=== PATIENT | female | born 1940 | race Caucasian/White ===

== ENCOUNTER → 2016-03-27 | Outpatient (CLI) | payer OTHER ==
[~2016-03-27] MED LIST: ACET-1256 PO; ASPEC81 PO; ASPI1TAB83 PO; ATV2 PO; CYCL0.052 OPB; LEVO100T7 PO; MECL1TAB42 PO; OMEP20CA9 PO; SYN100 PO
--- NOTE | 2016-03-27 08:02 | DIAGNOSTIC IMAGING REPORT ---
ULTRASOUND ABDOMEN COMPLETE CLINICAL HISTORY: Generalized abdominal pain. COMPARISON STUDY: Abdominal CT dated 02/21/2014. TECHNIQUE: Real-time, grayscale, and color flow sonography of the abdomen was performed. Images are reviewed in the transverse and longitudinal planes. The Examination is degraded by large body habitus. FINDINGS: Liver: The liver is normal in size and echotexture. The left lobe of the liver appears diminutive. There is no intrahepatic biliary ductal dilatation. The main portal vein is patent. Gallbladder: The gallbladder is surgically absent. Imaged portions of the common bile duct measures up to 0.3 cm in diameter. Pancreas: Visualized portions of the pancreatic head appear atrophic. The majority of the pancreas is not well visualized. Spleen: The spleen is normal in size and echotexture, measuring 8.4 cm in length. Kidneys: The kidneys demonstrate cortical atrophy. There is no hydronephrosis. The right kidney measures 11.2 cm in length and the left kidney measures 11.4 cm in length. No shadowing calculi are identified. Abdominal vasculature: Visualized portions of the abdominal aorta are normal in appearance. The IVC appears patent. Ascites: None. IMPRESSION: No acute sonographic abnormality is identified noting status post cholecystectomy. Electronically signed by: Guille Irene M.D. 03/27/2016 8:00 AM Dictated Date/Time: 03/27/2016 7:58 AM
[2016-03-27 11:16] LABS: BASO % 0.5 %; BASO ABS # 0.03 K/uL (0-0.2); COMPLETE YES; EOS % 2.6 %; HEMATOCRIT 42.9 % (37-47); IG% 0.3 %; LYMPH % 26.3 %; LYMPH ABS # 1.75 K/uL (1.2-3.4); MEAN CELL VOLUME 94.9 fL (80-100); MEAN CORPUSCULAR HEMOGLOBIN 32.1 pg (25-34); MEAN CORPUSCULAR HGB CONC 33.8 g/dl (32-36); MEAN PLATELET VOLUME 10.3 fL (7.4-10.4); MONO % 9.9 %; NEUT % 60.4 %; PLATELET COUNT 350 K/uL (130-400); RED BLOOD COUNT 4.52 M/uL (4.2-5.4); WHITE BLOOD COUNT 6.66 K/uL (4.8-10.8)
[2016-03-27 11:30] LABS: ALKALINE PHOSPHATASE 78 U/L (45-117); ALT/SGPT 24 U/L (12-78); AST/SGOT 17 U/L (15-37); BLOOD UREA NITROGEN 13 mg/dl (7-18); BUN/CREATININE RATIO 18.4 (10-20); CALCIUM 8.8 mg/dl (8.5-10.1); CARBON DIOXIDE 29 mmol/L (21-32); CHLORIDE 104 mmol/L (98-107); CHOLESTEROL 216 mg/dl (0-200); CHOLESTEROL/HDL RATIO 2.6; CREATININE 0.73 mg/dl (0.60-1.20); GLUCOSE 108 mg/dl (70-99); HDL CHOLESTEROL 82 mg/dl; LDL CHOLESTEROL CALCULATED 106 mg/dl; POTASSIUM 4.1 mmol/L (3.5-5.1); SODIUM 140 mmol/L (136-145); TRIGLYCERIDES 140 mg/dl (0-150); VERY LOW DENSITY LIPOPROT CALC 28 mg/dl
== END | disposition home or self-care (01) ==
LOC: C.ULTRBC 07:09
PROVIDERS: ATTEND Family Medicine
DX: R10.11 Right upper quadrant pain (principal); R53.83 Other fatigue; M54.5 Low back pain

== ENCOUNTER → 2016-09-02 | Outpatient (CLI) | payer OTHER ==
--- NOTE | 2016-09-02 15:38 | MAMMOGRAPHY REPORT ---
UNILATERAL LEFT DIGITAL SCREENING MAMMOGRAM TOMOSYNTHESIS WITH CAD: 09/02/2016 TECHNIQUE: Breast tomosynthesis in addition to standard 2D mammography was performed. Current study was also evaluated with a Computer Aided Detection (CAD) system. Left CC and MLO 2-D and tomosynthes is images were obtained. COMPARISON: Comparison is made to exams dated: 08/29/2015 mammogram, 07/17/2014 mammogram, 04/25/2013 angelito mogram, 12/01/2011 mammogram, and 04/21/2011 ultrasound - [facility]. BREAST COMPOSITION: The tissue of the left breast is almost entirely fatty. FINDINGS: Status post right mastectomy. There are no suspicious masses, calcifications, or areas of architectural distortion noted in the left breast. There has been no significant interval change co mpared to prior exams. A biopsy marker clip is again noted in the left upper outer quadrant. Scatte red benign-appearing calcifications are stable. Benign-appearing circumscribed left breast masses in the left breast are stable compared to prior exams. IMPRESSION: ACR BI-RADS CATEGORY 2: BENIGN There is no mammographic evidence of malignancy. A 1 year screening mammogram is recommended. The pa tient will receive written notification of the results. Approximately 10% of breast cancers are not detected with mammography. A negative mammographic report should not delay biopsy if a clinically suggestive mass is present. Annie Rg M.D. ah/:09/02/2016 12:16:12 Anthropology Lecturer: Maricarmen PRADO)([place]), [facility] letter sent: Normal 1/2 BI-RADS Code: ACR BI-RADS Category 2: Benign
== END | disposition home or self-care (01) ==
LOC: C.MAMM 10:58
PROVIDERS: ATTEND Family Medicine
DX: Z12.31 Encounter for screening mammogram for malignant neoplasm of breast (principal)

== ENCOUNTER 2016-09-05 12:12 | Emergency (ER) | payer OTHER ==
[~2016-09-05] VITALS: Ht 152.4 cm; Wt 66.0 kg
[~2016-09-05 12:12] MED LIST changes: -ASPI1TAB83 PO; -CYCL0.052 OPB; -LEVO100T7 PO; -MECL1TAB42 PO
[2016-09-05 12:32] VITALS: TEMP 36.6; Ht 152.4 cm; Wt 66.0 kg
[2016-09-05] MEDS ORDERED: ASPI1TAB83 PO (12:48)
[2016-09-05] MEDS ORDERED: CYCL0.052 OPB (12:48)
[2016-09-05] MEDS ORDERED: LEVO100T7 PO (12:48)
[2016-09-05] MEDS ORDERED: SODIUM CHLORIDE 0.9% 1000ML 1,000 ML IV STA (12:51)
[2016-09-05] MEDS ORDERED: ONDANSETRON 8 MG/54 ML D5W IV STA (12:59)
[2016-09-05] MEDS ORDERED: MECLIZINE HCL 25 MG TAB PO STA (12:59)
[2016-09-05] MEDS ORDERED: LORAZEPAM 2 MG/ML 1 ML VIAL IV STA (12:59)
[2016-09-05 13:09] LABS: BASO % 0.2 %; BASO ABS # 0.02 K/uL (0-0.2); COMPLETE YES; EOS % 0.1 %; HEMATOCRIT 45.4 % (37-47); IG% 0.2 %; LYMPH % 9.4 %; LYMPH ABS # 1.17 K/uL (1.2-3.4); MEAN CELL VOLUME 93.2 fL (80-100); MEAN CORPUSCULAR HEMOGLOBIN 32.2 pg (25-34); MEAN CORPUSCULAR HGB CONC 34.6 g/dl (32-36); MEAN PLATELET VOLUME 9.5 fL (7.4-10.4); NEUT % 87.1 %; PLATELET COUNT 423 K/uL (130-400); RED BLOOD COUNT 4.87 M/uL (4.2-5.4)
--- NOTE | 2016-09-05 13:18 | DIAGNOSTIC IMAGING REPORT ---
CHEST ONE VIEW PORTABLE CLINICAL HISTORY: EVALUATE ALTERED MENTAL STATUS/WEAKNESS mental status change COMPARISON STUDY: 11/14/2015 FINDINGS: Chronic elevation right hemidiaphragm. Lungs are clear. Postoperative changes right axilla and thoracolumbar spine unchanged IMPRESSION: No acute process. The above report was generated using voice recognition software. It may contain grammatical, syntax or spelling errors. Electronically signed by: Uche Bonner M.D. 09/05/2016 1:16 PM Dictated Date/Time: 09/05/2016 1:16 PM
[2016-09-05 13:31] LABS: ALT/SGPT 20 U/L (12-78); BLOOD UREA NITROGEN 8 mg/dl (7-18); BUN/CREATININE RATIO 11.3 (10-20); CALCIUM 9.7 mg/dl (8.5-10.1); CARBON DIOXIDE 26 mmol/L (21-32); CHLORIDE 101 mmol/L (98-107); CREATININE 0.67 mg/dl (0.60-1.20); GLUCOSE 152 mg/dl (70-99); MAGNESIUM 1.7 mg/dl (1.8-2.4); POTASSIUM 3.5 mmol/L (3.5-5.1); SODIUM 136 mmol/L (136-145)
--- NOTE | 2016-09-05 13:37 | DIAGNOSTIC IMAGING REPORT ---
HEAD WITHOUT CONTRAST (CT) CT DOSE: 687.98 mGy.cm HISTORY: EVALUATE ALTERED MENTAL STATUS/WEAKNESS TECHNIQUE: Multiaxial CT images of the head were performed without the use of intravenous contrast. Comparison: None. Findings: The paranasal sinuses and mastoid air cells are clear. The calvarium and skull base are intact. The ventricles and sulci are within normal limits. There is no mass, hematoma, midline shift, or acute infarct. Mild findings of chronic small vessel change of aging Impression: No acute intracranial abnormality. Age-related change The above report was generated using voice recognition software. It may contain grammatical, syntax or spelling errors. Electronically signed by: Uche Bonner M.D. 09/05/2016 1:35 PM Dictated Date/Time: 09/05/2016 1:34 PM
[2016-09-05 13:39] LABS: ALKALINE PHOSPHATASE 65 U/L (45-117); AST/SGOT 17 U/L (15-37); CKMB/CK RATIO 1.3 (0-3.0); THYROID STIMULATING HORMONE 0.562 uIu/ml (0.300-4.500)
[2016-09-05 14:27] LABS: PARTIAL THROMBOPLASTIN RATIO 1.1; PROTHROMBIN TIME (PATIENT) 10.7 SECONDS (9.0-12.0)
[2016-09-05 14:42] LABS: URINE APPEARANCE CLEAR (CLEAR); URINE BILIRUBIN NEG (NEG); URINE COLOR YELLOW; URINE NITRITE NEG (NEG); URINE PH 7.5 (4.5-7.5); URINE SPECIFIC GRAVITY 1.014 (1.000-1.030); UROBILINOGEN NEG (NEG); ZZUR CULT IF INDIC CLEAN CATCH NO
[2016-09-05 14:47] LABS: MANUAL MICROSCOPIC REQUIRED? NO; REVIEW REQ? NO
[2016-09-05] MEDS ORDERED: MECL1TAB42 PO (15:54)
--- NOTE | 2016-09-05 15:55 | EMERGENCY ROOM VISIT NOTE ---
History Report prepared by Gina: Rebekah Salgado Under the Supervision of: Dr. Mason Biswas D.O. First contact with patient: 12:47 Chief Complaint: DIZZY Stated Complaint: DIZZINESS,VOMITING Nursing Triage Summary: PT HERE WITH DIZZINESS AND VOMITING SINCE THIS AM. HX OF VERTIGO ONCE BEFORE. SLIGHT HEADACHE EARLIER. FEELS LIKE ROOM IS SPINNING History of Present Illness The patient is a 75 year old female who presents to the Emergency Room with complaints of intermittent dizziness starting this morning. The patient had an onset of her symptoms when she woke up this morning. She has been having intermittent dizziness all morning. She describes it as room spinning dizziness. She has worsening symptoms with head movement. She was unable to ambulate as normal. She had symptom relief with rest. The patient also complains of nausea and vomiting. She had 8 vomiting episodes this morning. She currently denies any pain. She denies any history of similar symptoms. She has a history of vertigo but reports her current symptoms are much more severe. She denies headache, diarrhea, or any other complaints. Source of History: patient Onset: this morning Position: other (global) Symptom Intensity: No pain Quality: other (dizziness) Timing: intermittent Modifying Factors (Worsening): movement (of head) Modifying Factors (Relieving): rest Associated Symptoms: + nausea, + vomiting, No headache, No diarrhea Review of Systems See HPI for pertinent positives & negatives. A total of 10 systems reviewed and were otherwise negative. Past Medical & Surgical Medical Problems: (1) Back surgery (2) Benign hypertension (3) Breast CA (4) Carcinoma of breast (5) Cellulitis (6) Cellulitis of right upper extremity (7) Cholecystectomy (8) Diverticulitis (9) Hypertension (10) Lymphangitis (11) Mastectomy (12) Urinary tract infection Surgical Problems: (1) H/O spinal fusion (2) Hx of cholecystectomy Family History Cancer Heart disease Hypertension Lung disease Social History Smoking Status: Never Smoker Marital Status: Occupation Status: retired Current/Historical Medications Scheduled Aspirin (Aspirin), 81 MG PO DAILY Cyclosporine (Ophth) (Restasis), 1 DROP OPB BID Levothyroxine Sodium (Levothyroxine Sodium), 100 MCG PO DAILY Omeprazole (Prilosec), 20 MG PO BID Scheduled PRN Lorazepam (Lorazepam), 2 MG PO TID PRN for Anxiety Allergies Coded Allergies: Amoxicillin (Verified Allergy, Intermediate, RASH, 12/28/15) RASH AND GI UPSET Clavulanic Acid (Verified Allergy, Intermediate, RASH, 12/28/15) RASH AND GI UPSET Cephalexin (Verified Allergy, Mild, HIVES, 12/28/15) Ciprofloxacin (Verified Allergy, Mild, HIVES, 12/28/15) Sulfa Drugs (Verified Allergy, Mild, 12/28/15) Sulfa Antibiotics (Unverified Allergy, Unknown, HIVES, 12/28/15) Doxycycline (Verified Adverse Reaction, Unknown, GI distress, 12/28/15) Doxycycline Monohydrate Physical Exam Vital Signs Date Time Temp Pulse Resp B/P (MAP) Pulse Ox O2 Delivery O2 Flow Rate FiO2 09/05/16 14:18 99 09/05/16 13:57 95 18 142/88 96 Room Air 09/05/16 12:51 99 15 164/100 97 09/05/16 12:32 36.6 100 16 149/97 94 Room Air Physical Exam VITAL SIGNS: were reviewed as above. GENERAL:Non-toxic in appearance. SKIN: Warm dry and pink. HEAD: Normocephalic and atraumatic. OROPHARYNX: Is clear and moist NECK: Supple without lymphadenopathy or meningismus. LUNGS: clear. HEART: Regular rate and rhythm. ABDOMEN: Soft and nontender. EXTREMITIES: Warm and well perfused. NEUROLOGICALLY: Awake alert and oriented without focal deficit. Cranial nerves 2 -12 are intact. There is no pronator drift. Cerebellar testing is within normal limits. There is no nystagmus. There is no facial droop. Speech is clear. Vision is grossly normal. MUSCULOSKELETAL: Good muscle tone. No evidence of trauma. Medical Decision & Procedures ER Provider Diagnostic Interpretation: X ray results and stated below per my interpretation and radiology interpretation. CHEST ONE VIEW PORTABLE CLINICAL HISTORY: EVALUATE ALTERED MENTAL STATUS/WEAKNESS mental status change COMPARISON STUDY: 11/14/2015 FINDINGS: Chronic elevation right hemidiaphragm. Lungs are clear. Postoperative changes right axilla and thoracolumbar spine unchanged IMPRESSION: No acute process. The above report was generated using voice recognition software. It may contain grammatical, syntax or spelling errors. Electronically signed by: Uche Bonner M.D. 09/05/2016 1:16 PM Dictated Date/Time: 09/05/2016 1:[address] results as stated below per my review and radiologist interpretation: HEAD WITHOUT CONTRAST (CT) CT DOSE: 687.98 mGy.cm HISTORY: EVALUATE ALTERED MENTAL STATUS/WEAKNESS TECHNIQUE: Multiaxial CT images of the head were performed without the use of intravenous contrast. Comparison: None. Findings: The paranasal sinuses and mastoid air cells are clear. The calvarium and skull base are intact. The ventricles and sulci are within normal limits. There is no mass, hematoma, midline shift, or acute infarct. Mild findings of chronic small vessel change of aging Impression: No acute intracranial abnormality. Age-related change The above report was generated using voice recognition software. It may contain grammatical, syntax or spelling errors. Electronically signed by: Uche Bonner M.D. 09/05/2016 1:35 PM Dictated Date/Time: 09/05/2016 1:34 PM Laboratory Results 09/05/16 12:45 Red Blood Count 4.87, Mean Corpuscular Volume 93.2, Mean Corpuscular Hemoglobin 32.2, Mean Corpuscular Hemoglobin Concent 34.6, Mean Platelet Volume 9.5, Neutrophils (%) (Auto) 87.1, Lymphocytes (%) (Auto) 9.4, Monocytes (%) (Auto) 3.0, Eosinophils (%) (Auto) 0.1, Basophils (%) (Auto) 0.2, Neutrophils # (Auto) 10.81, Lymphocytes # (Auto) 1.17, Monocytes # (Auto) 0.37, Eosinophils # (Auto) 0.01, Basophils # (Auto) 0.02 09/05/16 12:45 Test 09/05/16 12:45 09/05/16 13:40 09/05/16 14:00 White Blood Count 12.40 K/uL (4.8-10.8) Red Blood Count 4.87 M/uL (4.2-5.4) Hemoglobin 15.7 g/dL (12.0-16.0) Hematocrit 45.4 % (37-47) Mean Corpuscular Volume 93.2 fL (80-100) Mean Corpuscular Hemoglobin 32.2 pg (25-34) Mean Corpuscular Hemoglobin Concent 34.6 g/dl (32-36) Platelet Count 423 K/uL (130-400) Mean Platelet Volume 9.5 fL (7.4-10.4) Neutrophils (%) (Auto) 87.1 % Lymphocytes (%) (Auto) 9.4 % Monocytes (%) (Auto) 3.0 % Eosinophils (%) (Auto) 0.1 % Basophils (%) (Auto) 0.2 % Neutrophils # (Auto) 10.81 K/uL (1.4-6.5) Lymphocytes # (Auto) 1.17 K/uL (1.2-3.4) Monocytes # (Auto) 0.37 K/uL (0.11-0.59) Eosinophils # (Auto) 0.01 K/uL (0-0.5) Basophils # (Auto) 0.02 K/uL (0-0.2) RDW Standard Deviation 45.3 fL (36.4-46.3) RDW Coefficient of Variation 13.2 % (11.5-14.5) Immature Granulocyte % (Auto) 0.2 % Immature Granulocyte # (Auto) 0.02 K/uL (0.00-0.02) Anion Gap 9.0 mmol/L (3-11) Est Creatinine Clear Calc Drug Dose 61.5 ml/min Estimated GFR () 99.7 Estimated GFR (Non- 86.0 BUN/Creatinine Ratio 11.3 (10-20) Calcium Level 9.7 mg/dl (8.5-10.1) Magnesium Level 1.7 mg/dl (1.8-2.4) Total Bilirubin 0.9 mg/dl (0.2-1) Direct Bilirubin 0.2 mg/dl (0-0.2) Aspartate Amino Transf (AST/SGOT) 17 U/L (15-37) Alanine Aminotransferase (ALT/SGPT) 20 U/L (12-78) Alkaline Phosphatase 65 U/L (45-117) Total Creatine Kinase 64 U/L (26-192) Creatine Kinase MB 0.8 ng/ml (0.5-3.6) Creatine Kinase MB Ratio 1.3 (0-3.0) Troponin I < 0.015 ng/ml (0-0.045) Total Protein 7.9 gm/dl (6.4-8.2) Albumin 4.3 gm/dl (3.4-5.0) Lipase 83 U/L (73-393) Thyroid Stimulating Hormone (TSH) 0.562 uIu/ml (0.300-4.500) Prothrombin Time 10.7 SECONDS (9.0-12.0) Prothromb Time International Ratio 1.0 (0.9-1.1) Activated Partial Thromboplast Time 27.4 SECONDS (21.0-31.0) Partial Thromboplastin Ratio 1.1 Urine Color YELLOW Urine Appearance CLEAR (CLEAR) Urine pH 7.5 (4.5-7.5) Urine Specific [place] 1.014 (1.000-1.030) Urine Protein NEG (NEG) Urine Glucose (UA) NEG (NEG) Urine Ketones 1+ (NEG) Urine Occult Blood NEG (NEG) Urine Nitrite NEG (NEG) Urine Bilirubin NEG (NEG) Urine Urobilinogen NEG (NEG) Urine Leukocyte Esterase NEG (NEG) Urine WBC (Auto) 1-5 /hpf (0-5) Urine RBC (Auto) 0-4 /hpf (0-4) Urine Hyaline Casts (Auto) 0 /lpf (0-5) Urine Epithelial Cells (Auto) 10-20 /lpf (0-5) Urine Bacteria (Auto) NEG (NEG) Laboratory results as stated above per my review. Medications Administered Medications (Trade) Dose Ordered Sig/Briana Route Start Time Stop Time Status Last Admin Dose Admin Sodium Chloride 1,000 ml @ 999 mls/hr Q1H1M STAT IV 09/05/16 12:51 09/05/16 13:51 DC 09/05/16 12:51 999 MLS/HR Ondansetron HCl (Zofran 8mg Iv) 8 mg NOW STAT IV 09/05/16 12:59 09/05/16 13:00 DC 09/05/16 13:12 8 MG Meclizine HCl (Antivert Tab) 25 mg NOW STAT PO 09/05/16 12:59 09/05/16 13:00 DC 09/05/16 13:12 25 MG Lorazepam (Ativan Inj) 0.5 mg NOW STAT IV 09/05/16 12:59 09/05/16 13:00 DC 09/05/16 13:12 0.5 MG ECG Indication: nausea, other (Dizziness) Rate (beats per minute): 98 Rhythm: sinus rhythm Findings: 1st degree AV block, no acute ischemic change, no ectopy ED Course 1247: Previous medical records were reviewed. The patient was evaluated in room B04B. A complete history and physical examination was performed. 1251: Sodium Chloride 1000 ml @ 999 mls/hr IV 1259: Ativan Inj 0.5 mg IV, Antivert Tab 25 mg PO, Ondansetron HCl 8 mg IV 1540: On reevaluation, the patient is resting comfortably. I discussed the results and findings with the patient. She verbalized agreement of the treatment plan. She was discharged home. Medical Decision Medication Reconciliation: I attest that I have personally reviewed the patient' s current medication list. Patient was found to have a slightly elevated blood pressure due to circumstances. I do not believe that the patient requires hypertension monitoring. Differential includes acute coronary syndrome, myocardial infarction, CVA, TIA, anemia, infection, pneumonia, UTI, pyelonephritis, poor nutrition, dehydration, electrolyte disturbance,hypoglycemia. This is a 75-year-old female who presents to the ED with a chief complaint of vertigo. The patient states that she awoke and became very dizzy and the room was spinning violently. She developed nausea and vomiting and had about 8 episodes of vomiting. She denies any diarrhea. She describes her symptoms as a spinning sensation. She denies any headaches or other symptoms. The patient' s neurologic and physical exam were unremarkable. The nurse reported some horizontal nystagmus but this was not seen on my evaluation. EKG shows a sinus rhythm. CT scan of the brain and chest x-ray were negative for acute disease. CBC is unremarkable. Chemistry panel was normal. TSH is normal. Troponin is normal. Glucose was 152. The patient was treated with IV fluids, IV Zofran IV Ativan and by mouth meclizine. On reassessment, she is feeling better. She was discharged on meclizine. She does have Zofran at home. Impression Primary Impression: Dizziness Additional Impression: Vertigo Scribe Attestation The scribe's documentation has been prepared under my direction and personally reviewed by me in its entirety. I confirm that the note above accurately reflects all work, treatment, procedures, and medical decision making performed by me. Departure Information Dispostion Home / Self-Care Prescriptions Meclizine Hcl (MECLIZINE HCL) 25 Mg Tab 1 TAB PO TID Y for Dizziness or Vertigo for 10 Days, #30 TAB Prov: Mason Biswas D.O. 09/05/16 Referrals Gregorio Do M.D. (PCP) Forms HOME CARE DOCUMENTATION FORM, IMPORTANT VISIT INFORMATION Patient Instructions [facility] Additional Instructions Meclizine as prescribed for dizziness. Follow-up with your doctor for further care and evaluation in 1-2 days. Return to the emergency department for worsening or new symptoms or any concerns. You have been examined and treated today on an emergency basis only. This is not a substitute for, or an effort to provide, complete comprehensive medical care. It is impossible to recognize and treat all injuries or illnesses in a single emergency department visit. It is therefore important that you follow up closely with your doctor. Call as soon as possible for an appointment. Problem Qualifiers
[2016-09-05 15:57] VITALS: BP 142/95; PULSE 102; O2SAT 98
== END 2016-09-05 16:17 | disposition home or self-care (01) ==
LOC: C.EDB 12:13
DX: R42 Dizziness and giddiness (principal); I44.0 Atrioventricular block, first degree; I10 Essential (primary) hypertension; K57.92 Diverticulitis of intestine, part unspecified, without perforation or abscess without bleeding; Z85.3 Personal history of malignant neoplasm of breast; Z87.442 Personal history of urinary calculi; Z90.49 Acquired absence of other specified parts of digestive tract; Z86.19 Personal history of other infectious and parasitic diseases; Z98.890 Other specified postprocedural states; Z98.1 Arthrodesis status; Z88.1 Allergy status to other antibiotic agents; Z88.2 Allergy status to sulfonamides; Z88.8 Allergy status to other drugs, medicaments and biological substances; Z80.9 Family history of malignant neoplasm, unspecified; Z82.49 Family history of ischemic heart disease and other diseases of the circulatory system

== ENCOUNTER → 2017-04-15 | Outpatient (CLI) | payer OTHER ==
[~2017-04-15] MED LIST changes: -ACET-1256 PO; -ASPEC81 PO; +ASPI1TAB83 PO; +CYCL0.052 OPB; +LEVO100T7 PO; -SYN100 PO
--- NOTE | 2017-04-15 09:38 | DIAGNOSTIC IMAGING REPORT ---
EXAMINATION: RENAL ULTRASOUND CLINICAL HISTORY: LOW BACK PAIN, ABD BLOATING COMPARISON STUDY: March 27, 2016 FINDINGS: The right kidney measures 11.2 cm. The left kidney measures 10.7 cm. There is no evidence of hydronephrosis. There are no renal masses. No bladder abnormalities are visualized. Bilateral ureteral jets were visualized. IMPRESSION : Normal renal ultrasound Electronically signed by: Terrell Cantu M.D. 04/15/2017 9:36 AM Dictated Date/Time: 04/15/2017 9:35 AM
--- NOTE | 2017-04-15 09:40 | DIAGNOSTIC IMAGING REPORT ---
EXAMINATION: PELVIC ULTRASOUND (transabdominal only) CLINICAL HISTORY: LOW BACK PAIN, ABD BLOATING COMPARISON STUDY: FINDINGS: The uterus measured 7.1 x 3.4 x 5.4 cm. Uterine echotexture is heterogeneous. The endometrial stripe could not be delineated. There are myometrial calcifications present.. Neither ovary was visualized. There was no evidence of pathologic free pelvic fluid. The patient refused endovaginal scanning IMPRESSION: 1. Technically limited study. The patient refused endovaginal scanning 2. Nonvisualization of the endometrium secondary to calcific shadowing from myometrial calcifications. No evidence of significant uterine enlargement 3. Nonvisualization of the ovaries Electronically signed by: Terrell Cantu M.D. 04/15/2017 9:38 AM Dictated Date/Time: 04/15/2017 9:36 AM
== END | disposition home or self-care (01) ==
LOC: C.ULTR 08:52
PROVIDERS: ATTEND Family Medicine
DX: R14.0 Abdominal distension (gaseous) (principal); M54.5 Low back pain; R30.0 Dysuria; N85.8 Other specified noninflammatory disorders of uterus

== ENCOUNTER 2017-05-13 11:57 | Emergency (ER) | payer OTHER ==
[~2017-05-13] VITALS: Ht 152.4 cm; Wt 69.4 kg
[2017-05-13 12:09] VITALS: TEMP 36.4; Ht 152.4 cm; Wt 69.4 kg
[2017-05-13] MEDS ORDERED: NITR-90 PO (12:17)
--- NOTE | 2017-05-13 12:37 | EMERGENCY ROOM VISIT NOTE ---
History Report prepared by Gina: Jude Parra Under the Supervision of: Dr. Gregorio Farris D.O. First contact with patient: 12:20 Chief Complaint: GI ASSESSMENT Stated Complaint: BLEEDING FROM BOWEL History of Present Illness The patient is a 76 year old female who presents to the Emergency Room with concerns over bloody bowel movements that she first noticed this morning, a few hours ago. The patient states that when she woke up this morning she was very "shaky." She had her first BM of the day, that contained formed stool with some trace "bright red" blood. She then felt the need to have a second BM that felt like diarrhea. This BM contained "dark red" blood with clots present. The patient did have a normal bowel movement yesterday. She did have an episode like this in the past and was seen in the emergency department. She was diagnosed with diverticulosis on this visit. The patient denies any rectal pain , but there is some lower abdominal pain. She also notes some shortness of breath with the shakiness throughout the day today. Source of History: patient Onset: A few hours ago Position: other (Rectal ) Review of Systems See HPI for pertinent positives & negatives. A total of 10 systems reviewed and were otherwise negative. Past Medical & Surgical Medical Problems: (1) Back surgery (2) Benign hypertension (3) Breast CA (4) Carcinoma of breast (5) Cellulitis (6) Cellulitis of right upper extremity (7) Cholecystectomy (8) Diverticulitis (9) Hypertension (10) Lymphangitis (11) Mastectomy (12) Urinary tract infection Surgical Problems: (1) H/O spinal fusion (2) Hx of cholecystectomy Family History Cancer Heart disease Hypertension Lung disease Social History Smoking Status: Never Smoker Marital Status: Occupation Status: retired Current/Historical Medications Scheduled Aspirin (Aspirin), 81 MG PO DAILY Cyclosporine (Ophth) (Restasis), 1 DROP OPB BID Levothyroxine Sodium (Levothyroxine Sodium), 100 MCG PO DAILY Nitrofurantoin Macrocrystal (Nitrofurantoin Macrocryst), 100 MG PO DAILY Omeprazole (Prilosec), 20 MG PO BID Scheduled PRN Lorazepam (Lorazepam), 2 MG PO TID PRN for Anxiety Allergies Coded Allergies: Amoxicillin (Verified Allergy, Intermediate, RASH, 12/28/15) RASH AND GI UPSET Clavulanic Acid (Verified Allergy, Intermediate, RASH, 12/28/15) RASH AND GI UPSET Cephalexin (Verified Allergy, Mild, HIVES, 12/28/15) Ciprofloxacin (Verified Allergy, Mild, HIVES, 12/28/15) Sulfa Drugs (Verified Allergy, Mild, 12/28/15) Sulfa Antibiotics (Unverified Allergy, Unknown, HIVES, 12/28/15) Doxycycline (Verified Adverse Reaction, Unknown, GI distress, 12/28/15) Doxycycline Monohydrate Physical Exam Vital Signs Date Time Temp Pulse Resp B/P (MAP) Pulse Ox O2 Delivery O2 Flow Rate FiO2 05/13/17 13:53 106 05/13/17 13:44 106 15 171/108 97 Room Air 05/13/17 12:09 36.4 110 20 174/104 98 Room Air Physical Exam GENERAL: Patient is awake, alert, and in no acute distress. Patient is resting comfortably and showing no signs of anxiety EYES: The conjunctivae are clear. The pupils are round and reactive. EARS, NOSE, MOUTH AND THROAT: The nose is without any evidence of any deformity. Mucous membranes are moist tongue is midline NECK: The neck is nontender and supple. RESPIRATORY: Normal respiratory effort is noted there is no evidence of wheezing rhonchi or rales CARDIOVASCULAR: Tachycardic rate and normal rhythm noted there no murmurs rubs or gallops normal S1 normal S2 GASTROINTESTINAL: The abdomen is soft. Bowel sounds are present in all quadrants. Abdomen is nontender MUSCULOSKELETAL/EXTREMITIES: There is no evidence of gross deformity full range of motion is noted in the hips and shoulders SKIN: There is no obvious evidence of any rash. There are no petechiae, pallor or cyanosis noted. NEUROLOGIC: Patient is awake alert and oriented x3 strength is symmetric patellar reflexes are 2+ bilaterally RECTAL: There was light colored stool that was heme positive on rectal exam. Medical Decision & Procedures ER Provider Diagnostic Interpretation: Radiology results as stated below per my review and radiologist interpretation: CHEST AND ABDOMEN 2 VIEWS HISTORY: Generalized abdominal pain. COMPARISON: Chest 09/05/2016. Abdomen and pelvis CT 02/21/2014. FINDINGS: The lungs are clear. The cardiomediastinal silhouette is within normal limits. There is no pneumoperitoneum or pneumatosis. The bowel gas pattern is unremarkable. No evidence for bowel obstruction. Old, healed left lower rib fractures. Surgical clips within the right axilla. Chronic elevation the right hemidiaphragm, unchanged. No renal or ureteral calculi. Posterior fusion of the thoracolumbar spine from T12 through L3. Cholecystectomy. Calcified uterine fibroids are again noted. A few nondilated gas and fluid-filled loops of small bowel within the left upper quadrant. Small amount of fluid within the colon. IMPRESSION: 1. No acute process within the chest. 2. No evidence for bowel obstruction. 3. A few nondilated gas and fluid-filled loops of small bowel within the left side of the abdomen. This is nonspecific and could represent a mild ileus or gastroenteritis. Electronically signed by: Ignacio Love M.D. 05/13/2017 1:42 PM Dictated Date/Time: 05/13/2017 1:38 PM Laboratory Results 05/13/17 12:50 Red Blood Count 4.79, Mean Corpuscular Volume 95.0, Mean Corpuscular Hemoglobin 31.7, Mean Corpuscular Hemoglobin Concent 33.4, Mean Platelet Volume 9.2, Neutrophils (%) (Auto) 75.1, Lymphocytes (%) (Auto) 17.3, Monocytes (%) (Auto) 6.3, Eosinophils (%) (Auto) 0.4, Basophils (%) (Auto) 0.4, Neutrophils # (Auto) 5.96, Lymphocytes # (Auto) 1.37, Monocytes # (Auto) 0.50, Eosinophils # (Auto) 0.03, Basophils # (Auto) 0.03 05/13/17 12:50 Test 05/13/17 12:50 White Blood Count 7.93 K/uL (4.8-10.8) Red Blood Count 4.79 M/uL (4.2-5.4) Hemoglobin 15.2 g/dL (12.0-16.0) Hematocrit 45.5 % (37-47) Mean Corpuscular Volume 95.0 fL (80-100) Mean Corpuscular Hemoglobin 31.7 pg (25-34) Mean Corpuscular Hemoglobin Concent 33.4 g/dl (32-36) Platelet Count 439 K/uL (130-400) Mean Platelet Volume 9.2 fL (7.4-10.4) Neutrophils (%) (Auto) 75.1 % Lymphocytes (%) (Auto) 17.3 % Monocytes (%) (Auto) 6.3 % Eosinophils (%) (Auto) 0.4 % Basophils (%) (Auto) 0.4 % Neutrophils # (Auto) 5.96 K/uL (1.4-6.5) Lymphocytes # (Auto) 1.37 K/uL (1.2-3.4) Monocytes # (Auto) 0.50 K/uL (0.11-0.59) Eosinophils # (Auto) 0.03 K/uL (0-0.5) Basophils # (Auto) 0.03 K/uL (0-0.2) RDW Standard Deviation 46.6 fL (36.4-46.3) RDW Coefficient of Variation 13.4 % (11.5-14.5) Immature Granulocyte % (Auto) 0.5 % Immature Granulocyte # (Auto) 0.04 K/uL (0.00-0.02) Prothrombin Time 10.3 SECONDS (9.0-12.0) Prothromb Time International Ratio 1.0 (0.9-1.1) Activated Partial Thromboplast Time 27.5 SECONDS (21.0-31.0) Partial Thromboplastin Ratio 1.1 Anion Gap 7.0 mmol/L (3-11) Est Creatinine Clear Calc Drug Dose 67.1 ml/min Estimated GFR () 101.5 Estimated GFR (Non- 87.6 BUN/Creatinine Ratio 10.9 (10-20) Calcium Level 9.8 mg/dl (8.5-10.1) Total Bilirubin 1.1 mg/dl (0.2-1) Direct Bilirubin 0.2 mg/dl (0-0.2) Aspartate Amino Transf (AST/SGOT) 15 U/L (15-37) Alanine Aminotransferase (ALT/SGPT) 18 U/L (12-78) Alkaline Phosphatase 71 U/L (45-117) Total Protein 8.4 gm/dl (6.4-8.2) Albumin 4.2 gm/dl (3.4-5.0) Lipase 92 U/L (73-393) Laboratory results per my review. ED Course 1224: The patient was evaluated in room C1B. A complete history and physical examination were performed. 1404: Upon reevaluation, the patient is resting in bed. I discussed the results and treatment plan with her. She verbalized agreement of the treatment plan. The patient was discharged home. Medical Decision Differential diagnosis: Etiologies such as diverticulosis, AVM, coagulopathy, colitis, inflammatory bowel disease, malignancy, Olga-Sullivan tear, esophagitis, peptic ulcer disease , variceal bleed, gastritis, epistaxis, fissure, hemorrhoids, as well as others were entertained. Nursing notes reviewed. Patient's previous electronic medical records reviewed. The patient is a 76-year-old female who presented to the emergency department for an evaluation of rectal bleeding. The patient had intermittent rectal bleeding which seems to have resolved. There is no gross blood per rectum on exam. The patient states that she has a history of diverticulosis. Her abdominal exam was not consistent with an acute surgical abdomen. I discussed patient's laboratory and radiographic studies with her. At this time I feel that she can safely follow-up as an outpatient. She was given follow-up information for the gastroenterology group. She was also encouraged to call her family doctor to schedule a follow-up appointment. I also encouraged that she return to the emergency department immediately if symptoms change worsening the need arises. Medication Reconcilliation Current Medication List: was personally reviewed by me Blood Pressure Screening Patient's blood pressure: Elevated blood pressure Blood pressure disposition: Referred to PCP Impression Primary Impression: Lower GI bleed Scribe Attestation The scribe's documentation has been prepared under my direction and personally reviewed by me in its entirety. I confirm that the note above accurately reflects all work, treatment, procedures, and medical decision making performed by me. Departure Information Dispostion Home / Self-Care Referrals Gregorio Do M.D. (PCP) Forms HOME CARE DOCUMENTATION FORM, IMPORTANT VISIT INFORMATION Patient Instructions My [facility] Additional Instructions Call your family doctor to schedule a follow-up appointment. Call the GI physician to schedule a follow-up appointment for soon as possible. Continue all medications as prescribed. Return to the emergency department immediately if symptoms change worsen or the need arises.
[2017-05-13 13:12] LABS: BASO % 0.4 %; BASO ABS # 0.03 K/uL (0-0.2); EOS % 0.4 %; EOS ABS # 0.03 K/uL (0-0.5); HEMATOCRIT 45.5 % (37-47); HEMOGLOBIN 15.2 g/dL (12.0-16.0); IG# 0.04 K/uL (0.00-0.02); LYMPH % 17.3 %; LYMPH ABS # 1.37 K/uL (1.2-3.4); MEAN CORPUSCULAR HEMOGLOBIN 31.7 pg (25-34); MEAN CORPUSCULAR HGB CONC 33.4 g/dl (32-36); MEAN PLATELET VOLUME 9.2 fL (7.4-10.4); MONO % 6.3 %; NEUT % 75.1 %; NEUT ABS # 5.96 K/uL (1.4-6.5); PLATELET COUNT 439 K/uL (130-400); RED CELL DISTRIBUTION WIDTH CV 13.4 % (11.5-14.5); RED CELL DISTRIBUTION WIDTH SD 46.6 fL (36.4-46.3); WHITE BLOOD COUNT 7.93 K/uL (4.8-10.8)
[2017-05-13 13:19] LABS: ALBUMIN 4.2 gm/dl (3.4-5.0); CALCIUM 9.8 mg/dl (8.5-10.1); CREATININE 0.62 mg/dl (0.60-1.20); POTASSIUM 3.5 mmol/L (3.5-5.1); PTT PATIENT 27.5 SECONDS (21.0-31.0)
[2017-05-13 13:23] LABS: TOTAL PROTEIN 8.4 gm/dl (6.4-8.2)
--- NOTE | 2017-05-13 13:43 | DIAGNOSTIC IMAGING REPORT ---
CHEST AND ABDOMEN 2 VIEWS HISTORY: Generalized abdominal pain. COMPARISON: Chest 09/05/2016. Abdomen and pelvis CT 02/21/2014. FINDINGS: The lungs are clear. The cardiomediastinal silhouette is within normal limits. There is no pneumoperitoneum or pneumatosis. The bowel gas pattern is unremarkable. No evidence for bowel obstruction. Old, healed left lower rib fractures. Surgical clips within the right axilla. Chronic elevation the right hemidiaphragm, unchanged. No renal or ureteral calculi. Posterior fusion of the thoracolumbar spine from T12 through L3. Cholecystectomy. Calcified uterine fibroids are again noted. A few nondilated gas and fluid-filled loops of small bowel within the left upper quadrant. Small amount of fluid within the colon. IMPRESSION: 1. No acute process within the chest. 2. No evidence for bowel obstruction. 3. A few nondilated gas and fluid-filled loops of small bowel within the left side of the abdomen. This is nonspecific and could represent a mild ileus or gastroenteritis. Electronically signed by: Ignacio Love M.D. 05/13/2017 1:42 PM Dictated Date/Time: 05/13/2017 1:38 PM
[2017-05-13 14:15] VITALS: BP 162/102; PULSE 101; O2SAT 98
== END 2017-05-13 14:15 | disposition home or self-care (01) ==
LOC: C.EDB 11:59 → C.EDC 14:15
DX: K92.2 Gastrointestinal hemorrhage, unspecified (principal); I10 Essential (primary) hypertension; Z85.3 Personal history of malignant neoplasm of breast; Z82.49 Family history of ischemic heart disease and other diseases of the circulatory system; Z79.82 Long term (current) use of aspirin; Z88.8 Allergy status to other drugs, medicaments and biological substances; Z88.2 Allergy status to sulfonamides

== ENCOUNTER → 2017-10-07 | Outpatient (CLI) | payer OTHER ==
[~2017-10-07] MED LIST changes: +NITR-90 PO
--- NOTE | 2017-10-07 11:49 | DIAGNOSTIC IMAGING REPORT ---
L SHOULDER MIN 2 VIEWS ROUTINE CLINICAL HISTORY: 77 years-old Female presenting with M25.512 left shoulder pain. TECHNIQUE: Internal rotation, external rotation, Grashey views of the left shoulder were obtained. COMPARISON: 09/05/2016. FINDINGS: Glenohumeral and acromioclavicular joints congruent. Trace osteophytosis at the inferior aspect of the humeral head. Minimal degenerative changes of the acromioclavicular joint also suggested. No acute fracture or malalignment. No advanced degenerative change. No radiographic soft tissue abnormality. IMPRESSION: No acute osseous injury or advanced degenerative change. Minimal degenerative changes as above. Electronically signed by: Maldonado Collins M.D. 10/07/2017 11:47 AM Dictated Date/Time: 10/07/2017 11:43 AM
== END | disposition home or self-care (01) ==
LOC: C.RAD1850 11:35
PROVIDERS: ATTEND Family Medicine
DX: M25.512 Pain in left shoulder (principal)

== ENCOUNTER → 2017-10-07 | Outpatient (CLI) | payer OTHER ==
--- NOTE | 2017-10-07 15:40 | MAMMOGRAPHY REPORT ---
UNILATERAL LEFT DIGITAL SCREENING MAMMOGRAM TOMOSYNTHESIS WITH CAD: 10/07/2017 CLINICAL HISTORY: Personal history of breast cancer. Asymptomatic. TECHNIQUE: The study was acquired using full field digital technology and interpreted from soft copy. Breast tomosynthesis in addition to standard 2D mammography was performed. Current study was also ev aluated with a Computer Aided Detection (CAD) system. COMPARISON: Comparison is made to exams dated: 09/02/2016 mammogram, 08/29/2015 mammogram, 07/17/2014 ma mmogram, 04/25/2013 mammogram, 04/21/2011 ultrasound, and 12/01/2011 mammogram - [facility] nter. BREAST COMPOSITION: The tissue of left breast is almost entirely fatty. FINDINGS: There are no suspicious masses, calcifications, or areas of architectural distortion noted in the lef t breast. There has been no significant interval change compared to prior exams. A biopsy marker cl ip is again noted in the left upper outer quadrant. Scattered benign-appearing calcifications are st able. Benign-appearing small circumscribed left breast masses in the left breast are stable compared to prior exams. IMPRESSION: ACR BI-RADS CATEGORY 2: BENIGN There is no mammographic evidence of malignancy in the left breast. A 1 year screening mammogram is r ecommended.(10/08/2018) The patient will receive written notification of the results. Some breast cancers are not detected with mammography. A negative mammographic report should not taj y biopsy if a clinically suggestive mass is present. Annie Rg M.D. ah/:10/07/2017 07:37:23 Can Runner: RT Hansa(R)(M), [facility] letter sent: Normal 1/2 BI-RADS Code: ACR BI-RADS Category 2: Benign
== END | disposition home or self-care (01) ==
LOC: C.MAMM 07:11
PROVIDERS: ATTEND Family Medicine
DX: Z12.31 Encounter for screening mammogram for malignant neoplasm of breast (principal); Z90.11 Acquired absence of right breast and nipple

== ENCOUNTER 2019-10-18 08:14 | Inpatient (IN) ==
[2019-10-18] MEDS ORDERED: SODIUM CHLORIDE 0.9% 1000ML 1,000 ML IV ONE (08:24)
--- NOTE | 2019-10-18 08:31 | Emergency Department Note ---
Impression & Plan Seizure, Altered mental status, Elevated platelet count ED Provider Note NAME: RAMÍREZ GALLARDO AGE: 79 SEX: F : 1940 ARRIVES VIA: Ambulance INFORMANT: Patient and EMS ED PROVIDER(S): Kris Murphy DO CHIEF COMPLAINT: Altered mental status HPI: Patient is a 79-year-old female who was recently evaluated in the ER for dizziness. She presents to the ER today brought in by EMS for confusion and a fall. She does not know why she is here and does not remember even being here yesterday. She denies all complaints. History is limited secondary to mentatio n. She denies any headache, chest pain, shortness of breath, belly pain nausea vomiting or diarrhea. She does not remember falling today. She is not sure where the bruises came from on her abdomen. She does not know what year it is. She does admit to getting dizzy when she sat up. After her 's arrival he notes that she woke up this morning was acting appropriately. She went back to her bedroom in the process she collapsed to the ground had some shaking. She was confused after this. He called EMS and she was brought in. ROS: Review of systems limited secondary to mentation PAST MEDICAL HISTORY:See Below PAST SURGICAL HISTORY:See Below FAMILY HISTORY:See Below SOCIAL HISTORY:See Below HOME MEDICATIONS:See Below ALLERGIES:See Below VITALS:See Below PHYSICAL EXAMINATION: GENERAL: alert, anxious, no acute distress, confused HEAD: normal cephalic, atraumatic EYE EXAM: normal conjunctiva, PERRL and EOM's grossly intact OROPHARYNX: mucous membranes are moist NECK: supple, no nuchal rigidity, no adenopathy, non-tender CHEST: stable to compression anteriorly and posteriorly LUNGS: clear to auscultation. Normal chest wall mechanics HEART: no murmurs, S1 normal and S2 normal ABDOMEN: abdomen soft, non-tender with the exception of the bruising left mid abdomen, normo-active bowel sounds, no masses, no rebound or guarding. PELVIS: stable to compression anteriorly and posteriorly BACK: Back is symmetrical on inspection and there is no deformity, no midline tenderness, no CVA tenderness. UPPER EXTREMITIES: full active and passive range of motion of all joints without tenderness to palpation LOWER EXTREMITIES: full active and passive range of motion of all joints without tenderness to palpation NEURO EXAM: Oriented to person, not year, cranial nerves II-XII intact, normal speech, no weakness of arms, no weakness of legs. GCS: 14. No drift. Pndnvt-[id number] intact. MEDICAL DECISION MAKING: Patient is a 79-year-old female who presents the ER for confusion. Upon presentation she is oriented to person place but not year. IV was established blood work was obtained. Labs show no significant leukocytosis. No significant anemia. Platelets are significantly elevated at 1011 from baseline of 600. BMP with mild hypokalemia. LFTs bilirubin was remarkable for slightly elevated bilirubin. Troponin was negative. UA was negative. CT head was negative. Did have bruising over the left belly and consequently CT abdomen and pelvis was performed which was unremarkable. Patient had a witnessed seizure while in the ER. She was given 2 mg of Ativan as well as a gram of Keppra. She was placed on nonrebreather. This resolved and her mentation gradually improved. She was updated at bedside. Discussed with hematology oncology who agrees with keeping the patient here. Discussed with hospitalist patient was admitted for further work-up. Triage Nursing notes reviewed. Prior medical records reviewed Vital Signs: reviewed and remarkable for no significant abnormalities Differential diagnosis: Differential diagnoses includes but is not limited to toxic, metabolic, infec tious, traumatic, cardiac, neurologic, hematologic, psychiatric and inflammatory etiologies. ER treatment provided: See below Diagnostics interpreted by me: ECG: Sinus rhythm with a first-degree AV block PVC present Normal axis Normal QTC Cardiac Monitoring: An order was placed for continuous cardiac monitoring. The monitor shows a rate of 98 with this rhythm. Laboratory studies: As stated above and show below. Imaging studies: CT head shows no acute pathology CT abdomen pelvis was unremarkable Chest x-ray without any acute pathology Consultation(s): Discussed with Dr. Norris from hematology oncology who agreed with admission and further work-up. Discussed with hospitalist for further work-up ED COURSE: Procedures: none Critical Care: I have personally spent 31 minutes of critical care time in the direct management of this patient. This includes bedside care, interpretation of diagnostic studies, and testing, discussion with consultants, patient, and family members, and other required patient management activities. This 31 minutes is in excess of all separately billable procedures. Past Med/Surg History Medical History (Updated 10/18/19 @ 12:23 by Kris Murphy DO) History of breast cancer Surgical History H/O mastectomy S/P cholecystectomy Family History Family/Other Kidney stones Hypertension Heart disease Lung cancer Liver cancer Breast cancer ALS (amyotrophic lateral sclerosis) Social History Smoking Status: Never smoker Hx Alcohol Use: Yes (social) Preferred Language: [place] Feels Safe at Home: Yes Allergies Allergies Allergy/AdvReac Type Severity Reaction Status Date / Time Cipro Allergy Mild HIVES Verified 12/28/15 15:11 ciprofloxacin Allergy Mild HIVES Verified 10/18/19 09:00 amoxicillin Allergy Verified 10/18/19 09:00 cephalexin [From Keflex] Allergy Verified 10/18/19 09:00 clavulanic acid Allergy Verified 10/18/19 09:00 [From Augmentin] doxycycline Allergy Verified 10/18/19 09:00 meclizine Allergy Verified 10/18/19 09:00 Sulfa (Sulfonamide Allergy Verified 10/18/19 09:00 Antibiotics) Home Meds Home Medications Medication Instructions Recorded Confirmed acetaminophen 650 mg PO QID PRN 10/17/19 10/18/19 aspirin [Aspir-81] 81 mg PO BID 10/17/19 10/18/19 levothyroxine 88 mcg PO QAM 10/17/19 10/18/19 lorazepam 2 mg PO TID PRN 10/17/19 10/18/19 omeprazole 40 mg PO BID 10/17/19 10/18/19 ondansetron 4 mg TRANSLINGUAL Q8H PRN 10/17/19 10/18/19 Results & Data (ED) Vital Signs Vital Signs - 24 hr 10/18/19 08:15 10/18/19 09:41 10/18/19 10:12 Temperature 36.4 C L Temperature Source Oral Pulse Rate 106 H Pulse Rate [Apical] 102 H 93 H Pulse Rhythm [Apical] Regular Respiratory Rate 20 17 24 Respiratory Effort / Characteristics Non-Labored Spontaneous Respiratory Depth Normal Respiratory Pattern Regular Blood Pressure 143/79 H Blood Pressure [Left Arm] 131/84 134/84 Blood Pressure Mean 100 Blood Pressure Mean [Left Arm] 99 100 Pulse Oximetry 98 93 91 Oxygen Delivery Method Room Air Room Air Room Air Oxygen Flow Rate Sepsis Recent Fever Within 48 Hours No Sepsis New/Unexplained Change in Mental Status Yes Sepsis Action Taken by Nursing No Action Required 10/18/19 12:02 10/18/19 12:10 Temperature Temperature Source Pulse Rate Pulse Rate [Apical] 97 H Pulse Rhythm [Apical] Respiratory Rate 20 Respiratory Effort / Characteristics Respiratory Depth Respiratory Pattern Blood Pressure Blood Pressure [Left Arm] 153/86 H Blood Pressure Mean Blood Pressure Mean [Left Arm] 108 Pulse Oximetry 97 Oxygen Delivery Method Nasal Cannula Oxygen Flow Rate 2 Sepsis Recent Fever Within 48 Hours Sepsis New/Unexplained Change in Mental Status Sepsis Action Taken by Nursing Laboratory Data Result diagrams: 10/18/19 08:43 10/18/19 08:43 Lab Results 10/18/19 10/18/19 10/18/19 Range/Units 08:43 08:43 09:47 WBC 10.89 H (4.8-10.8) K/uL RBC 4.40 (4.2-5.4) M/uL Hgb 14.3 (12.0-16.0) g/dL Hct 41.8 (37-47) % MCV 95.0 (80-100) fL MCH 32.5 (25-34) pg MCHC 34.2 (32-36) g/dL RDW Std Deviation 46.8 H (36.4-46.3) fL RDW Coeff of Saundra 13.4 (11.5-14.5) % Plt Count 1011 H* (130-400) K/uL MPV 8.8 (7.4-10.4) fL Immature Gran % (Auto) 0.5 % Neut % (Auto) 77.5 % Lymph % (Auto) 16.6 % Woods % (Auto) 4.7 % Eos % (Auto) 0.5 % Baso % (Auto) 0.2 % Neut # (Auto) 8.45 H (1.4-6.5) K/uL Lymph # (Auto) 1.81 (1.2-3.4) K/uL Woods # (Auto) 0.51 (0.11-0.59) K/uL Eos # (Auto) 0.05 (0-0.5) K/uL Baso # (Auto) 0.02 (0-0.2) K/uL Immature Gran # (Auto) 0.05 H (0.00-0.02) K/uL Sodium 135 L (136-145) mmol/L Potassium 3.3 L (3.5-5.1) mmol/L Chloride 101 (98-107) mmol/L Carbon Dioxide 24 (21-32) mmol/L Anion Gap 10.0 (3-11) BUN 8 (7-18) mg/dl Creatinine 1.07 (0.6-1.2) mg/dl Est Cr Clr Drug Dosing Not Reportable Est GFR ( Amer) 57.2 Est GFR (Non-Af Amer) 49.3 BUN/Creatinine Ratio 7.9 L (10-20) Glucose 229 H (70-99) mg/dl Calcium 9.8 (8.5-10.1) mg/dl Magnesium 1.9 (1.8-2.4) mg/dl Total Bilirubin 1.5 H (0.2-1) mg/dl AST 21 (15-37) U/L ALT 23 (12-78) U/L Alkaline Phosphatase 73 (45-117) U/L Troponin I < 0.015 (0-0.045) ng/ml Total Protein 8.6 H (6.4-8.2) gm/dl Albumin 4.2 (3.4-5.0) gm/dl Globulin 4.4 H (2.5-4.0) gm/dl Albumin/Globulin Ratio 0.9 (0.9-2) Lipase 57 L (73-393) U/L Urine Color Yellow Urine Appearance Clear (Clear) Urine pH 5.0 (4.5-7.5) Ur Specific [place] > 1.045 H (1.000-1.030) Urine Protein Trace H (Negative) Urine Glucose (UA) Trace H (Negative) Urine Ketones Trace H (Negative) Urine Blood Negative (Negative) Urine Nitrite Negative (Negative) Urine Bilirubin Negative (Negative) Urine Urobilinogen Negative (Negative) Ur Leukocyte Esterase Negative (Negative) Urine WBC (Auto) 1-5 (0-5) /hpf Urine RBC (Auto) 0-4 (0-4) /hpf U Hyaline Cast (Auto) 5-10 H (0-5) /lpf U Epithel Cells (Auto) 20-30 H (0-5) /lpf Urine Bacteria (Auto) Negative (Negative) Administered Medications Discontinued Medications Sodium Chloride (Nss 1000ml) 1,000 mls @ 999 mls/hr IV .Q1H1M ONE Stop: 10/18/19 09:24 Last Infusion: 10/18/19 10:56 Dose: 0 mls/hr Documented by: [id number] Admin: 10/18/19 09:17 Dose: 999 mls/hr Documented by: [id number] Levetiracetam 1,000 mg/ Sodium (Chloride) 110 mls @ 440 mls/hr IV NOW STA Stop: 10/18/19 09:33 Last Infusion: 10/18/19 10:11 Dose: 0 mls/hr Documented by: [id number] Admin: 10/18/19 09:49 Dose: 440 mls/hr Documented by: [id number] Potassium Acetate 10 meq/ (Sodium Chloride) 105 mls @ 105 mls/hr IV Q1H JANES Stop: 10/18/19 12:14 Last Admin: 10/18/19 11:35 Dose: 105 mls/hr Documented by: [id number] Infusion: 10/18/19 11:34 Dose: 0 mls/hr Documented by: [id number] Admin: 10/18/19 10:27 Dose: 105 mls/hr Documented by: [id number] Ioversol (Ioversol 100ml) 93 ml IV ONCE ONE Stop: 10/18/19 09:17 Last Admin: 10/18/19 09:16 Dose: 93 ml Documented by: [id number] Lorazepam (Lorazepam 2 Mg/4 Ml Vial) Confirm Administered Dose 4 mg .ROUTE .STK- MED ONE Stop: 10/18/19 09:11 Last Increment: 10/18/19 09:12 Dose: 2 mg Documented by: [id number] Ondansetron HCl (Ondansetron Inj 2 Mg/Ml 2 Ml Vial) 4 mg IV NOW STA Stop: 10/18/19 10:29 Last Admin: 10/18/19 10:31 Dose: 4 mg Documented by: [id number] Discharge Plan Visit Data Chief Complaint: Confusion ED Provider: Kris Murphy Discharge Problem: Seizure, Altered mental status, Elevated platelet count Discharge Instructions Interventions: ED Discharge Assessment Last Done: 10/18/19 12:10 Forms Stand Alone Forms: [facility] Prescriptions Prescriptions: No Action lorazepam 2 mg tablet 2 mg PO TID PRN (Reason: Anxiety) RF: 0 aspirin [Aspir-81] 81 mg Tablet,Delayed Release (Dr/Ec) 81 mg PO BID RF: 0 levothyroxine 88 mcg tablet 88 mcg PO QAM RF: 0 omeprazole 40 mg capsule,delayed release(DR/EC) 40 mg PO BID RF: 0 ondansetron 4 mg tablet,disintegrating 4 mg translingual Q8H PRN (Reason: Nausea) RF: 0 acetaminophen 325 mg Tablet 650 mg PO QID PRN (Reason: Pain) RF: 0 Referrals Referrals: Gregorio Do MD [Primary Care Provider] - Discharge Problem: Altered mental status Qualifiers: Altered mental status type: unspecified Qualified Code(s): R41.82 - Altered mental status, unspecified
[2019-10-18 09:04] LABS: Basophils # (auto) 0.02 K/uL (0-0.2); Basophils % (auto) 0.2 %; Eosinophils # (auto) 0.05 K/uL (0-0.5); Eosinophils % (auto) 0.5 %; Hematocrit (blood only) 41.8 % (37-47); Hemoglobin 14.3 g/dL (12.0-16.0); Immature Granulocytes # (auto) 0.05 K/uL (0.00-0.02); Immature Granulocytes % (auto) 0.5 %; Lymphocytes # (auto) 1.81 K/uL (1.2-3.4); Lymphocytes % (auto) 16.6 %; Mean Corpuscular Hemoglobin 32.5 pg (25-34); Mean Corpuscular Hgb Conc 34.2 g/dL (32-36); Mean Platelet Volume 8.8 fL (7.4-10.4); Monocytes # (auto) 0.51 K/uL (0.11-0.59); Monocytes % (auto) 4.7 %; Neutrophils # (auto) 8.45 K/uL (1.4-6.5); Neutrophils % (auto) 77.5 %; Platelet Count 1011 K/uL (130-400); RDW Coefficient of Variation 13.4 % (11.5-14.5); RDW Standard Deviation 46.8 fL (36.4-46.3); White Blood Count 10.89 K/uL (4.8-10.8)
[2019-10-18] MEDS ORDERED: LORazepam 2 MG/4 ML VIAL ONE (09:10)
[2019-10-18 09:14] LABS: Alanine Aminotransferase 23 U/L (12-78); Albumin Level 4.2 gm/dl (3.4-5.0); Aspartate Aminotransferase 21 U/L (15-37); BUN Creatinine Ratio 7.9 (10-20); Blood Urea Nitrogen 8 mg/dl (7-18); Calcium 9.8 mg/dl (8.5-10.1); Carbon Dioxide 24 mmol/L (21-32); Chloride 101 mmol/L (98-107); Est GFR (African American) 57.2; Est GFR (Non-African American) 49.3; Glucose 229 mg/dl (70-99); Lipase 57 U/L (73-393); Magnesium 1.9 mg/dl (1.8-2.4); Potassium 3.3 mmol/L (3.5-5.1); Sodium 135 mmol/L (136-145)
[2019-10-18] MEDS ORDERED: IOVERSOL 100ml IV ONE (09:16)
[2019-10-18 09:19] LABS: Albumin Globulin Ratio 0.9 (0.9-2); Alkaline Phosphatase 73 U/L (45-117); Bilirubin,Total 1.5 mg/dl (0.2-1); Globulin 4.4 gm/dl (2.5-4.0); Total Protein 8.6 gm/dl (6.4-8.2); Troponin I < 0.015 ng/ml (0-0.045)
[2019-10-18] MEDS ORDERED: levETIRAcetam 1,000 MG in 0.9 % SODIUM CHLORIDE 100 ML IV STA (09:19)
--- NOTE | 2019-10-18 09:42 | CT Scan Report ---
CT OF THE CERVICAL SPINE CLINICAL HISTORY: Neck pain status post trauma COMPARISON STUDY: February 2010 CT DOSE: TECHNIQUE: CT scan of the cervical spine was performed from the skull base to the thoracic inlet. Neida ges are reviewed in the axial, sagittal, and coronal planes. IV contrast was not administered for thi s examination. A dose lowering technique was utilized adhering to the principles of ALARA. FINDINGS: The visualized portions of the lung apices reveal no evidence of pneumothorax. The prevertebral soft tissues are normal. No fractures or subluxations are visualized. There are multilevel degenerative changes. There is a prominent C5-6 disc osteophyte complex IMPRESSION: No evidence of acute fracture or traumatic subluxation. ACT 112: Negative or not required by law. Electronically signed by: Terrell Cantu M.D. 10/18/2019 9:41 AM
--- NOTE | 2019-10-18 09:44 | CT Scan Report ---
HEAD CT NONCONTRAST CT DOSE: HISTORY: fall hit head and confusion TECHNIQUE: Multiaxial CT images of the head were performed without the use of intravenous contrast. A utomated exposure control was utilized for this study. A dose lowering technique was utilized adheri ng to the principles of ALARA. Comparison: Head CT 10/17/2019. Findings: The paranasal sinuses and mastoid air cells are clear. The calvarium and skull base are int act. There is no mass, hematoma, midline shift, acute infarct. White matter hypodensity is nonspecifi c but suggestive of microvascular ischemic change. The ventricles and sulci demonstrate mild age-rela rashi involutional changes. Impression: No acute intracranial abnormality. Atrophy and microvascular ischemic changes. ACT 112: Negative or not required by law. Electronically signed by: Ignacio Love M.D. 10/18/2019 9:43 AM
--- NOTE | 2019-10-18 09:57 | CT Scan Report ---
CT abd pelvis IV con only CLINICAL HISTORY: Trauma. Left abdominal bruising. COMPARISON STUDY: 11/26/2017 TECHNIQUE: Patient was scanned in a dynamic helical fashion during intravenous administration of 93 c c of Optiray 320 A dose lowering technique was utilized adhering to the principles of ALARA. CT DOSE: 1616.47 mGy.cm FINDINGS: Lower chest: There is respiratory motion artifact. There is subpleural reticulation. There are davis ry artery calcifications. The heart is enlarged. There is small hiatal hernia. Liver: The contrast-enhanced liver is normal in size, contour, and attenuation. There is no intrahepa tic biliary ductal dilatation. The hepatic veins and portal veins are patent. Gallbladder: Surgically absent Spleen: Normal in size and attenuation. Pancreas: Unremarkable. Adrenal glands: Unremarkable. Kidneys: There is symmetric renal cortical enhancement. The kidneys are normal in size without hydron ephrosis. Bowel: There are no transition zones indicate bowel obstruction. There is colonic diverticulosis. No acute peridiverticular inflammatory changes are visualized. There is no pathologic interloop fluid. T here is no pneumatosis. There are no findings to indicate acute appendicitis. Peritoneum: There is no intraperitoneal free air or abdominal ascites. Vasculature: The abdominal aorta is normal in course and caliber. Adenopathy: None. Pelvic viscera: There are calcified uterine fibroids. Skeletal structures: There are scattered sclerotic densities, likely representing bone islands. The b ones are osteopenic. There is an old L2 fracture. There is a T12-L3 posterior spinal fusion IMPRESSION: No evidence of acute intra-abdominal or pelvic injury. ACT 112: Negative or not required by law. Electronically signed by: Terrell Cantu M.D. 10/18/2019 9:56 AM
[2019-10-18 09:59] LABS: Appearance Urine Clear (Clear); Bacteria Urine Automated Negative (Negative); Bilirubin Urine Negative (Negative); Blood Urine Negative (Negative); Color Urine Yellow; Epithelial Cell Urine Auto 20-30 /lpf (0-5); Glucose Urine UA Trace (Negative); Ketones Urine Trace (Negative); Leukocyte Esterase Urine Negative (Negative); Nitrite Urine Negative (Negative); Protein Urine Trace (Negative); RBC Urine Automated 0-4 /hpf (0-4); Specific Gravity Urine > 1.045 (1.000-1.030); Urobilinogen Urine Negative (Negative)
--- NOTE | 2019-10-18 10:24 | History & Physical Report ---
Date of Service October 18, 2019 Assessment & Plan (1) Seizure: -Admit to PCU -Staff was alerted by who then saw the pt gasping for air, no tonic/jerking/tremor movements. Loaded with Ativan and Keppra. Cont ativan IV prn for seizure activity, seizure precautions. -Consult neurology -Check MRI of brain -Imaging of CT of the head reviewed and is normal -PT/OT consults -Noted elevation of protein as well as platelet count, concerning for possible underlying myeloma, follows with Dr. Norris now since Dr. Reina's departure. Consider oncology/hematology consult (2) Essential thrombocytosis: -hx of such-previously was on hydroxyurea in September 2018, stopped taking this medicine at unknown time as she did not like the way it made her felt. -Details of elevation discussed in HPI (3) History of breast cancer: -Remote history of such, currently in remission, status post mastectomy right sided, radiation and chemotherapy (4) Lymphedema: -Chronic RUE due to mastectomy (5) Hypertension: -History of such, not on any oral antihypertensives -Continue baby aspirin 81 mg bid (6) DVT prophylaxis: - teds, scds CODE: Full Dispo: From home, likely to remain in the hospital x 1-2 days. CM to assist with DC planning. History of Present Illness Primary Care Provider: Gregorio Do MD This is a 79 yo F with PMHx of HTN, aortic valve sclerosis, essential thromboc ytosis, lymphedema of the upper extremity, mitral valve regurgitation, GERD, prolonged QT interval, remote hx of breast cancer dxin the 1980s s/p mastectomy, radiation and chemotherapy with chronic RUE lymphedema as a result and is prone to cellulitis in that arm. She also has hx of recurrent UTIs. The patient has previously followed with Dr. Reina. She has had elevated platelet count ranging from 425-538K since September 2017. Prior to 2016 her platelet count was 200-300 K range, her platelets since have remained in the 500-600 range. 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 She has otherwise no history of thrombocytosis, but given age >60, she was started on Hydrea 500 mg daily in mid September 2018. The patient had complaints of nausea, back pain, feeling lousy on Wednesday. She went to see her PCP, Dr. Do on Wednesday. She was brought into the ER yesterday, 10/16 for complaints of back pain and weakness, nausea and abdominal discomfort, she was diagnosed with BPPV and sent home with Zofran and Ativan. This morning patient woke up to take her normally scheduled medications and walked back to the bedroom made to the doorway, and then slumped down towards the ground. witnessed this, denies LOC, hitting her head or experiencing other trauma. He called EMS. Patient was brought to the ER again and ER staff were alerted to the patient appearing sick by the at ~9:10am, when nursing arrived they report the patient was gasping for air and checked the pulse, no shaking/tremor. When asking the at bedside he cannot recall this happening earlier today and has difficulty telling me what occurred, and is also hard of hearing. Pt was loaded with Ativan 2 mg IV and Keppra 1000 mg. Yesterday her protein prior to the seizure event was elevated at 8.9, today is 8.6. Allergies Allergy/AdvReac Type Severity Reaction Status Date / Time Cipro Allergy Mild HIVES Verified 12/28/15 15:11 ciprofloxacin Allergy Mild HIVES Verified 10/18/19 09:00 amoxicillin Allergy Verified 10/18/19 09:00 cephalexin [From Keflex] Allergy Verified 10/18/19 09:00 clavulanic acid Allergy Verified 10/18/19 09:00 [From Augmentin] doxycycline Allergy Verified 10/18/19 09:00 meclizine Allergy Verified 10/18/19 09:00 Sulfa (Sulfonamide Allergy Verified 10/18/19 09:00 Antibiotics) Home Medications Home Medications Medication Instructions Recorded Confirmed Type acetaminophen 650 mg PO QID PRN 10/17/19 10/18/19 History aspirin [Aspir-81] 81 mg PO BID 10/17/19 10/18/19 History levothyroxine 88 mcg PO QAM 10/17/19 10/18/19 History lorazepam 2 mg PO TID PRN 10/17/19 10/18/19 History omeprazole 40 mg PO BID 10/17/19 10/18/19 History ondansetron 4 mg TRANSLINGUAL Q8H PRN 10/17/19 10/18/19 History Past Med/Surg History Medical History (Updated 10/18/19 @ 11:20 by Amparo Plascencia PA-C) History of breast cancer Surgical History H/O mastectomy S/P cholecystectomy Family History Family/Other Kidney stones Hypertension Heart disease Lung cancer Liver cancer Breast cancer ALS (amyotrophic lateral sclerosis) Social History Smoking Status: Never smoker Hx Alcohol Use: Yes (social) Preferred Language: Tajik Feels Safe at Home: Yes Review of Systems Review of Systems: Constitutional: No fever, sweats or chills Eyes: No diplopia, no worsening or blurred vision ENT: normal hearing, no trouble swallowing Respiratory: No cough, sputum, dyspnea at rest or on exertion Cardiovascular: No chest pain, tightness or palpitations Abdomen: No pain, +nausea, +vomiting x 2, no diarrhea or constipation Musculoskeletal: No joint pain, calf pain, swelling Neurologic: + generalized weakness, no numbness/tingling, or balance problems Psychiatric: No anxiety or depression Skin: No rash or itch Physical Exam Physical Exam: General: awake, alert to self, place, cannot recall events from this morning, closes eyes intermittently and drops her head down towards her chest, appears fatigued, no apparent distress, obese Head: Normocephalic, atraumatic ENT: PERRL, EOMI, no pharyngeal exudate, mucous membranes moist Chest: On 2L via NC, faint crackles bibasilarly, no rales or rhonchi Cardiac: Regular rate and rhythm, no murmur, no JVD, normal peripheral pulses, good capillary refill Abdominal: NABS x 4 quadrants, soft, nondistended nontender to palpation, no rebound, guarding or tenderness Extremities: Normal inspection, no peripheral edema or erythema, calfs nontender to palpation Psych: Normal mood and affect Neuro: AAO x 3, difficulty recalling events, no gross motor deficits, speech is clear, no peripheral sensory deficits Results & Data Results & Data ([place]) Vital Signs (Past 12 Hours) Vital Signs Temp Pulse Pulse Resp BP BP Pulse Ox 10/18/19 10:12 93 H 24 134/84 91 10/18/19 09:41 102 H 17 131/84 93 10/18/19 08:15 36.4 C L 106 H 20 143/79 H [address] NONCONTRAST CT DOSE: HISTORY: fall hit head and confusion TECHNIQUE: Multiaxial CT images of the head were performed without the use of intravenous contrast. Automated exposure control was utilized for this study. A dose lowering technique was utilized adhering to the principles of ALARA. Comparison: Head CT 10/17/2019. Findings: The paranasal sinuses and mastoid air cells are clear. The calvarium and skull base are intact. There is no mass, hematoma, midline shift, acute infarct. White matter hypodensity is nonspecific but suggestive of microvascular ischemic change. The ventricles and sulci demonstrate mild age-related involutional changes. Impression: No acute intracranial abnormality. Atrophy and microvascular ischemic changes. CT abd pelvis IV con only CLINICAL HISTORY: Trauma. Left abdominal bruising. COMPARISON STUDY: 11/26/2017 TECHNIQUE: Patient was scanned in a dynamic helical fashion during intravenous administration of 93 cc of Optiray 320 A dose lowering technique was utilized adhering to the principles of ALARA. CT DOSE: 1616.47 mGy.cm FINDINGS: Lower chest: There is respiratory motion artifact. There is subpleural reticulation. There are coronary artery calcifications. The heart is enlarged. There is small hiatal hernia. Liver: The contrast-enhanced liver is normal in size, contour, and attenuation. There is no intrahepatic biliary ductal dilatation. The hepatic veins and portal veins are patent. Gallbladder: Surgically absent Spleen: Normal in size and attenuation. Pancreas: Unremarkable. Adrenal glands: Unremarkable. Kidneys: There is symmetric renal cortical enhancement. The kidneys are normal in size without hydronephrosis. Bowel: There are no transition zones indicate bowel obstruction. There is colonic diverticulosis. No acute peridiverticular inflammatory changes are visualized. There is no pathologic interloop fluid. There is no pneumatosis. There are no findings to indicate acute appendicitis. Peritoneum: There is no intraperitoneal free air or abdominal ascites. Vasculature: The abdominal aorta is normal in course and caliber. Adenopathy: None. Pelvic viscera: There are calcified uterine fibroids. Skeletal structures: There are scattered sclerotic densities, likely representing bone islands. The bones are osteopenic. There is an old L2 fracture. There is a T12-L3 posterior spinal fusion IMPRESSION: No evidence of acute intra-abdominal or pelvic injury. ACT 112: Negative or not required by law. XR chest 1V portable HISTORY: Altered mental status. COMPARISON: Chest 10/17/2019. FINDINGS: No pneumothorax. No pleural effusions. Mild elevation the right hemidiaphragm, unchanged. The heart remains mildly enlarged. Mild diffuse interstitial thickening. This is likely chronic. No evidence for pulmonary edema. No new focal lung consolidations to suggest pneumonia. Spinal fusion hardware is again noted. There are surgical clips within the right axilla. IMPRESSION: No significant change compared to the prior study. No acute process. Code Status & VTE Plan Code Status Full code - discussed with the pt and at bedside Supervising Physician Co-Signing Physician Notes Patient was seen and examined independently I discussed the case with Naomi COON I reviewed pertinent past medical social family history and also the plan of c are and agree with the plan of care. Patient is hard of hearing with poor memory according to her she slumped over in a doorway of her home did not injure herself then here in the ER unwitn essed by staff the patient had an episode where she stopped speaking and he said her arms flailed about. This is interpreted as a tonic-clonic seizure by the ER staff and she was given Ativan and Keppra. Initial evaluation here was unremarkable with exception of thrombocytosis (elevated platelets (of which she has a history of an elevated serum protein and globulin which was also elevated prior to procedure on her ER visit on 10/16/2019. Patient is scheduled for further neurological work-up and will curbside hematology. Interestingly the patient is stopped taking her hydroxyurea which she was given to reduce her platelet count in the past by Dr. Reina Vital signs are reviewed Generally she is pleasant but not oriented she cannot tell me the month year or president she however can have casual conversation without difficulty There is no facial droop there is no arm drift there is no focal weakness or sensory loss Her cardiac exam is regular her lungs are clear Undetermined cause of possible seizure-like activity and weakness at home no evidence of overt infectious etiology at this time pursue additional imaging of her brain and neurological evaluation continuing her Keppra until seizures are ruled out Any exceptions will be noted below PG Care Time/CCT Total # of Minutes Spent Total Time Spent with Patient: Total time spent is greater than 50% in coordination of care (as documented) at patient's floor/unit and/or counseling patient: Coding Level of Care Code 59685 Initial Inpt Care Lvl 3 Diagnoses Seizure R56.9 Essential thrombocytosis D47.3 History of breast cancer Z85.3 Lymphedema I89.0 Hypertension I10 DVT prophylaxis Z29.9
[2019-10-18] MEDS: POTASSIUM ACETATE 10 MEQ in 0.9 % SODIUM CHLORIDE 100 ML IV SCH ×2 (10:27→11:35)
[2019-10-18] MEDS ORDERED: ONDANSETRON INJ 2 MG/ML 2 ML VIAL IV STA (10:28)
--- NOTE | 2019-10-18 10:38 | XRay Report ---
XR chest 1V portable HISTORY: Altered mental status. COMPARISON: Chest 10/17/2019. FINDINGS: No pneumothorax. No pleural effusions. Mild elevation the right hemidiaphragm, unchanged. T he heart remains mildly enlarged. Mild diffuse interstitial thickening. This is likely chronic. No ev idence for pulmonary edema. No new focal lung consolidations to suggest pneumonia. Spinal fusion hard manriquez is again noted. There are surgical clips within the right axilla. IMPRESSION: No significant change compared to the prior study. No acute process. ACT 112: Negative or not required by law. Electronically signed by: Ignacio Love M.D. 10/18/2019 10:36 AM
--- NOTE | 2019-10-18 11:54 | Electrocardiogram Report ---
Test Reason : Blood Pressure : / mmHG Vent. Rate : 105 BPM Atrial Rate : 102 BPM P-R Int : 000 ms QRS Dur : 084 ms QT Int : 392 ms P-R-T Axes : 000 012 054 degrees QTc Int : 518 ms Probable Sinus rhythm with marked first degree A-V block Abnormal ECG When compared with ECG of 17-OCT-2019 17:43, Precordial R wave amplitude improved Confirmed by Jd Madrigal ([id number]) on 10/18/2019 11:53:58 AM Referred By: REFERRED SELF Confirmed By:Jd Madrigal
[2019-10-18] MEDS ORDERED: LORazepam 2 MG/4 ML VIAL IV PRN (12:28)
[2019-10-18] MEDS ORDERED: ONDANSETRON INJ 2 MG/ML 2 ML VIAL IV PRN (12:28)
[2019-10-18] MEDS ORDERED: PROCHLORPERAZINE 10 MG in SYRINGE 8 ML IV PRN (12:28)
[2019-10-18] MEDS ORDERED: LORazepam 1 MG TAB PO PRN (12:33)
[2019-10-18] MEDS: MoRPHine SULFATE 2 MG/ML CARP IV PRN ×2 (13:47→23:24)
[2019-10-18] MEDS: SODIUM CHLORIDE 0.9% 1000ML 1,000 ML IV SCH ×2 (13:47→23:24)
[2019-10-18 14:29] LABS: D Dimer 3160 ug/L FEU (0-500)
--- NOTE | 2019-10-18 15:13 | Neurology Consultation ---
Date of Consultation October 18, 2019 Assessment & Plan (1) Altered mental status: (2) Seizure: Dulce Maria Benson is a 79 yo woman w/ PMH of anxiety on chronic benzos, HTN, essential thrombocytosis and h/o breast cancer who p/t [facility] after having a syncopal event a/w confusion with concern for possible seizure. # AMS with possible seizure: thrombocytosis can technically cause neurological symptoms including seizure, stroke and headaches. She also has a h/o breast can cer, cannot r/o recurrent/metastatic disease (MRI pending). Would also consider benzo withdrawal seizure as she is on relatively high dose ativan daily. - MRI brain w/ and w/o contrast pending - MRV pending to r/o CVST given ET - routine EEG pending - would also check the following labs: B12, TSH, thiamine - agree with hematology curbside to see if she should restart hydroxyurea for ET - would strongly encourage her to wean off of ativan and transition to an SSRI for anxiety (Beers criteria, should not be on standing benzos long-term, especially in light of 's concern that she has memory problems at baseline) - continue keppra 500mg bid, ativan 1mg prn for seizures lasting longer than 5 minutes or 2 seizures without return to baseline Thank you for this interesting consult. Plan of care discussed with primary team. Please call or text with questions. (3) Essential thrombocytosis: (4) History of breast cancer: (5) Anxiety: History of Present Illness Attending Physician: Umberto Mae MD History of Present Illness Dulce Maria Benson is a 79 yo woman w/ PMH of anxiety on chronic benzos, HTN, essential thrombocytosis and h/o breast cancer who p/t [facility] after having a syncopal event a/w confusion with concern for possible seizure. In the ED, she was afebrile, BP 143/79, heart rate 106, respiratory rate 20, satting 90% on room air. Labs notable for WBC 10.89, hemoglobin 14.3, platelets 1011, sodium mildly low at 135, mild hypokalemia 3.3, creatinine 1.07, glucose 229, calcium/magnesium within normal, LFTs within normal, troponin negative, UA shows pyuria but no signs of infection. D-dimer elevated at 3160. Chest x-ray showed mild elevation of right hemidiaphragm that is chronic, mild cardiomegaly, mild diffuse interstitial thickening that is chronic, no pneumonia. CT abdomen pelvis shows no acute intra-abdominal injury. Independently reviewed CT head shows no hemorrhage or hypodensity, mild to moderate small vessel disease, mild generalized atrophy, calcified vertebral and basilar arteries. MRI brain pending. On examination this afternoon, she reports no recent illness or injury that she can remember. Does remember that she fell down this morning but does not know details. She is now oriented to self, month and where she is at. Was not able to tell me if she is still taking the hydroxyurea but said that she is on the 5 medications on her medicine list as noted in the chart. She endorses taking 2 mg of Ativan daily and not missing any recent doses. Does take a baby aspirin daily. Currently endorsing headache and chest pain, has noticed intermittent numbness in her left hand over the last few days. Allergies Allergy/AdvReac Type Severity Reaction Status Date / Time Cipro Allergy Mild HIVES Verified 12/28/15 15:11 ciprofloxacin Allergy Mild HIVES Verified 10/18/19 09:00 amoxicillin Allergy Verified 10/18/19 09:00 cephalexin [From Keflex] Allergy Verified 10/18/19 09:00 clavulanic acid Allergy Verified 10/18/19 09:00 [From Augmentin] doxycycline Allergy Verified 10/18/19 09:00 meclizine Allergy Verified 10/18/19 09:00 Sulfa (Sulfonamide Allergy Verified 10/18/19 09:00 Antibiotics) Home Medications Home Medications Medication Instructions Recorded Confirmed Type acetaminophen 650 mg PO QID PRN 10/17/19 10/18/19 History aspirin [Aspir-81] 81 mg PO BID 10/17/19 10/18/19 History levothyroxine 88 mcg PO QAM 10/17/19 10/18/19 History lorazepam 2 mg PO TID PRN 10/17/19 10/18/19 History omeprazole 40 mg PO BID 10/17/19 10/18/19 History ondansetron 4 mg TRANSLINGUAL Q8H PRN 10/17/19 10/18/19 History Patient History Medical History History of breast cancer Surgical History H/O mastectomy S/P cholecystectomy Family History Family/Other Kidney stones Hypertension Heart disease Lung cancer Liver cancer Breast cancer ALS (amyotrophic lateral sclerosis) Social History Smoking Status: Never smoker Hx Alcohol Use: No Hx Substance Use: No Preferred Language: Bhutanese Communication Ability: Effective Project Management Director Required: No Beliefs That Will Affect Care: None Current Living Situation: Spouse Other Information That Helps Us Care for You: No Feels Safe at Home: Yes Safety Concerns: Feels Safe At This Time Review of Systems Review of Systems: 14 point review of systems completed and negative except as in HPI. Exam (Neuro) Physical Exam: General Exam: GEN: NAD, sitting in bed. HEENT: No conjunctival injection, no rhinorrhea. CV: RRR, no peripheral edema PULM: Nonlabored respirations on room air. Neuro Exam: MS: Awake and Alert. Oriented to person, place, and month/year but not date. Speech fluent and appropriate without dysarthria or paraphasic errors. Language intact including naming, repetition, mild difficult with comprehension. Cognition and memory mildly impaired. Attention intact. No neglect. CN: Visual reynolds full. No extinction to double simultaneous stimuli. Unable to visualize fundi on fundoscopic exam (pupils near pinpoint as she was recently given morphine). PERRLA OU. EOMI without nystagmus. Facial sensation intact to LT. Facial muscles full and symmetric. Hearing intact to conversation. Uvula midline with symmetric palatal elevation. Shoulder shrug normal. Tongue midline. MOTOR: Normal bulk and tone. No pronator drift. All extremities antigravity without drift (did not comprehend instructions for formal strength testing) REFLEXES: 1+ at biceps, triceps, brachioradialis, absent patella and absent Achilles bilaterally. Flexor plantar responses bilaterally. No clonus bilaterally. SENSORY: Intact to LT without extinction to double simultaneous stimuli. Vibration diminished in BLEs up to the knees, intact in bilateral hands. COORDINATION: No dysmetria or ataxia on [id number] bilaterally. Normal Prakash bilaterally. GAIT: deferred given physical status/fall risk Results & Data ([facility]) Vital Signs (Past 12 Hours) Vital Signs Temp Pulse Pulse Pulse Resp BP BP 10/18/19 14:45 36.4 C L 93 H 19 110/71 10/18/19 12:28 36.6 C 96 H 20 122/78 10/18/19 12:02 97 H 20 153/86 H 10/18/19 10:12 93 H 24 134/84 10/18/19 09:41 102 H 17 131/84 10/18/19 08:15 36.4 C L 106 H 20 143/79 H Pulse Ox 10/18/19 14:45 99 10/18/19 12:28 98 10/18/19 12:02 97 10/18/19 10:12 91 10/18/19 09:41 93 10/18/19 08:15 98 PG Care Time/CCT Total # of Minutes Spent Total Time Spent with Patient: Total time spent is greater than 50% in coordination of care (as documented) at patient's floor/unit and/or counseling patient: Coding Level of Care Code 62952 Initial Inpt Care Lvl 3 Diagnoses Altered mental status R41.82 Altered mental status type: unspecified Seizure R56.9 Essential thrombocytosis D47.3 History of breast cancer Z85.3 Anxiety F41.9 (1) Altered mental status Altered mental status type: unspecified Qualified Code(s): R41.82 - Altered mental status, unspecified
--- NOTE | 2019-10-18 15:17 | Electrocardiogram Report ---
Test Reason : Blood Pressure : / mmHG Vent. Rate : 095 BPM Atrial Rate : 095 BPM P-R Int : 168 ms QRS Dur : 084 ms QT Int : 428 ms P-R-T Axes : 000 -14 017 degrees QTc Int : 537 ms Normal sinus rhythm with marked first degree A-V block Abnormal ECG When compared with ECG of 18-OCT-2019 08:25, No significant change was found Confirmed by Jd Madrigal ([id number]) on 10/18/2019 3:16:44 PM Referred By: REFERRED SELF Confirmed By:Jd Madrigal
[2019-10-18] MEDS ORDERED: ENOXAPARIN 80 MG/0.8 ML SYR SQ SCH (16:00)
[2019-10-18] MEDS ORDERED: GADOBUTROL 65ML VIAL IV ONE (16:23)
[2019-10-18] MEDS ORDERED: OPTIRAY 320 125ml IV ONE (16:36)
--- NOTE | 2019-10-18 16:38 | Magnetic Resonance Report ---
MR venography head wo con HISTORY: Headaches. Assess for cerebral venous sinus thrombosis. TECHNIQUE: MRV of the brain was performed without contrast according to standard department protocol. COMPARISON STUDY: Head CT 10/18/2019. FINDINGS: The sigmoid sinuses, transverse sinuses, superior sagittal sinus, straight sinus, vein of G maureen, inferior sagittal sinus, and internal cerebral veins are patent. No evidence for dural venous s inus thrombosis. IMPRESSION: No evidence for dural venous sinus thrombosis. ACT 112: Negative or not required by law. Electronically signed by: Ignacio Love M.D. 10/18/2019 4:37 PM
--- NOTE | 2019-10-18 16:44 | Magnetic Resonance Report ---
Brain MRI WITH AND WITHOUT CONTRAST HISTORY: Headache. seizure TECHNIQUE: Multiplanar multisequence MRI of the brain was performed both before and after the intrave nous administration of contrast. COMPARISON STUDY: Head CT 10/18/2019. FINDINGS: Mild motion artifact. There is no mass, hematoma, midline shift, or acute infarct. The para nasal sinuses are clear. The mastoid air cells are clear. The ventricles and sulci demonstrate mild a ge-related involutional changes. Scattered foci of T2 hyperintensity seen within the periventricular and subcortical white matter are nonspecific but suggestive of moderate microvascular ischemic change s. The major vascular flow voids at the skull base are well-maintained. No abnormal enhancement. IMPRESSION: No acute intracranial abnormality. Scattered foci of T2 hyperintensity seen within the periventricula r and subcortical white matter are nonspecific but favor microvascular ischemic change. ACT 112: Negative or not required by law. Electronically signed by: Ignacio Love M.D. 10/18/2019 4:43 PM
--- NOTE | 2019-10-18 16:49 | CT Scan Report ---
CT ANGIOGRAPHY OF THE CHEST, PULMONARY EMBOLUS PROTOCOL CLINICAL HISTORY: Altered mental status. COMPARISON STUDY: Chest CT February 22, 2007. Chest radiograph October 18, 2019. TECHNIQUE: Following IV administration of 116 mL of Optiray-320, helical axial images of the chest we re obtained utilizing the pulmonary embolus protocol. Maximal intensity projections and sagittal and coronal reformats were viewed on an independent 3D workstation. IV contrast was administered withou t complication. Automated exposure control was utilized for the study. A dose lowering technique wa s utilized adhering to the principles of ALARA. CT DOSE: 301.39 mGy.cm FINDINGS: No pulmonary emboli are identified. There is no thoracic aortic dissection. Moderate coron elena artery calcification and cardiomegaly is noted. There is no pneumothorax or pleural effusion. Angie gs are suboptimally assessed given respiratory motion. Subpleural right middle lobe opacity likely re flects postradiation change. Groundglass and linear opacities within the remainder of the lungs favor atelectasis. There is no consolidation to suggest pneumonia. Mild compression fractures of the infer ior endplates of T3 and T4 noted. There are multiple old left rib fractures. Right mastectomy is note d. Small hiatal hernia is present. IMPRESSION: 1. No pulmonary emboli identified. 2. Mild compression fractures of the inferior endplates of T3 and T4 which appear acute to subacute. 3. Ground glass and linear opacities within the lungs which favor atelectasis. 4. Moderate cardiomegaly and coronary artery calcification. ACT 112: Negative or not required by law. Electronically signed by: Gautam Saravia M.D. 10/18/2019 4:48 PM
[2019-10-18] MEDS: PANTOprazole 40 MG TAB PO SCH (20:42)
[2019-10-18] MEDS: levETIRAcetam 500 MG TAB PO SCH (20:42)
[2019-10-18] MEDS: ASPIRIN 81 MG ECTAB PO SCH (20:42)
[2019-10-19 05:05] LABS: Hematocrit (blood only) 35.9 % (37-47); Hemoglobin 12.2 g/dL (12.0-16.0); Mean Corpuscular Hemoglobin 32.2 pg (25-34); Mean Corpuscular Volume 94.7 fL (80-100); Mean Platelet Volume 8.5 fL (7.4-10.4); Platelet Count 778 K/uL (130-400); RDW Coefficient of Variation 13.6 % (11.5-14.5); RDW Standard Deviation 47.2 fL (36.4-46.3); Red Blood Count 3.79 M/uL (4.2-5.4); White Blood Count 12.52 K/uL (4.8-10.8)
[2019-10-19 05:51] LABS: Albumin Globulin Ratio 0.9 (0.9-2); Albumin Level 3.1 gm/dl (3.4-5.0); BUN Creatinine Ratio 9.9 (10-20); Bilirubin,Total 1.4 mg/dl (0.2-1); Calcium 8.3 mg/dl (8.5-10.1); Creatinine Clr Calc Pharmacy 75.5 ml/min; Est GFR (African American) 105.3; Est GFR (Non-African American) 90.9; Globulin 3.3 gm/dl (2.5-4.0); Potassium 3.2 mmol/L (3.5-5.1); Thyroid Stimulating Hormone 0.535 uIu/ml (0.300-4.500); Total Protein 6.4 gm/dl (6.4-8.2)
[2019-10-19] MEDS: LEVOTHYROXINE SODIUM 88 MCG TABLET PO SCH (05:54)
[2019-10-19] MEDS: SODIUM CHLORIDE 0.9% 1000ML 1,000 ML IV SCH ×2 (07:41→15:55)
[2019-10-19] MEDS: ASPIRIN 81 MG ECTAB PO SCH ×2 (08:26→21:08)
[2019-10-19] MEDS: PANTOprazole 40 MG TAB PO SCH ×2 (08:26→21:08)
[2019-10-19] MEDS: ENOXAPARIN INJ 40 MG/0.4 ML SYR SQ SCH (08:26)
[2019-10-19] MEDS: levETIRAcetam 500 MG TAB PO SCH (08:27)
--- NOTE | 2019-10-19 15:32 | Neurology Progress Note ---
Date of Service October 19, 2019 Assessment & Plan (1) Altered mental status: (2) Seizure: Dulce Maria Benson is a 79 yo woman w/ PMH of anxiety on chronic benzos, HTN, essential thrombocytosis and h/o breast cancer who p/t [facility] after having a syncopal event a/w confusion with concern for possible seizure. # AMS with possible seizure: thrombocytosis can technically cause neurological symptoms including seizure, stroke and headaches. Would also consider benzo withdrawal seizure as she is on relatively high dose ativan daily and reports skipping at least one day's worth of medication when she was recommended to start valium for dizziness. - routine EEG pending, if no seizure tendency noted, ok to stop keppra - thiamine pending, would recommend starting B12 500 mcg daily to see if this helps with memory at all - agree with hematology curbside to see if she should restart hydroxyurea for ET - would strongly encourage her to wean off of ativan slwoly and transition to an SSRI for anxiety (Beers criteria) # Memory issues: concern from family about her baseline functioning was brought up - she should follow up in neurology clinic with BLAKE Goldstein, in 3-4 weeks post-discharge to have formal outpatient memory testing - work with PCP to wean off of benzos slowly - continue aspirin 81mg daily, work with PCP on better blood pressure control as her MRI is suggestive of a vascular cause for memory issues if testing is indicative of MCI or dementia Thank you for this interesting consult. Plan of care discussed with primary team. Please call or text with questions. (3) Essential thrombocytosis: (4) History of breast cancer: (5) Anxiety: (6) Memory changes: Admission and Anticipated Discharge Date Admission Date: October 18, 2019 Subjective NAEs overnight. Reports no further events. Endorsed anxiety and feeling upset at granddaughter this afternoon as granddaughter reported concern that she may not be safe to be at home by herself anymore. Reviewed interim testing. B12 level low normal 398, TSH within normal, thiamine pending. MRI brain independently reviewed and shows mild generalized atrophy with focal atrophy slightly increased on the right precentral gyrus with ex vacuo dilation, moderate to severe small vessel disease, no midline abnormalities noted. MRV showed no CVST. CT chest notable for no PE identified, mild compression fracture of inferior endplates of T3/T4 that are acute to subacute, atelectasis and moderate cardiomegaly with coronary artery calcifications noted. Review of Systems Review of Systems: 14 point review of systems completed and negative except as in HPI. Results & Data ([facility]) Vital Signs (Past 12 Hours) Vital Signs Temp Pulse Pulse Resp BP BP Pulse Ox 10/19/19 15:26 84 10/19/19 15:11 36.7 C 89 18 146/78 H 94 10/19/19 11:34 36.6 C 78 19 136/79 97 10/19/19 08:22 80 10/19/19 07:17 36.5 C 78 19 118/68 93 10/19/19 04:00 36.9 C 79 20 109/69 93 Exam (Neuro) Physical Exam: General Exam: GEN: NAD, sitting in bed. HEENT: No conjunctival injection, no rhinorrhea. CV: RRR, no peripheral edema PULM: Nonlabored respirations on room air. Neuro Exam: MS: Awake and Alert. Oriented to person, place, and date. Speech fluent and appropriate without dysarthria or paraphasic errors. Language intact including naming, repetition, mild difficult with comprehension. Cognition and memory mildly impaired. Attention intact. No neglect. CN: Visual reynolds full. No extinction to double simultaneous stimuli. Unable to visualize fundi on fundoscopic exam. PERRLA OU. EOMI without nystagmus. Facial sensation intact to LT. Facial muscles full and symmetric. Hearing intact to conversation. Uvula midline with symmetric palatal elevation. Shoulder shrug normal. Tongue midline. MOTOR: Normal bulk and tone. No pronator drift. All extremities antigravity without drift, 5/5 strength in bilateral biceps/triceps/hand grasp and 5/5 bilateral iliopsoas/hamstrings/quads/TA/gastrocnemius REFLEXES: 1+ at biceps, triceps, brachioradialis, absent patella and absent Achilles bilaterally. Flexor plantar responses bilaterally. No clonus bilaterally. SENSORY: Intact to LT without extinction to double simultaneous stimuli. Vib ration diminished in BLEs up to the knees, intact in bilateral hands. COORDINATION: No dysmetria or ataxia on [id number] bilaterally. Normal Prakash bilaterally. GAIT: deferred given physical status/fall risk PG Care Time/CCT Total # of Minutes Spent Total Time Spent with Patient: Total time spent is greater than 50% in coordination of care (as documented) at patient's floor/unit and/or counseling patient: Coding Level of Care Code 85881 Subseq Hosp Care Lvl 3 Diagnoses Altered mental status R41.82 Altered mental status type: unspecified Seizure R56.9 Essential thrombocytosis D47.3 History of breast cancer Z85.3 Anxiety F41.9 Memory changes R41.3 (1) Altered mental status Altered mental status type: unspecified Qualified Code(s): R41.82 - Altered mental status, unspecified
--- NOTE | 2019-10-19 15:41 | Electroencephalogram ---
EEG Procedure Note Date of Service October 19, 2019 Start / End Times Start Time: 8:02am End Time: 8:22am Referring Physician lissa anthony History possible seizure Home Medication List Home Medications Medication Instructions Recorded Confirmed Type acetaminophen 650 mg PO QID PRN 10/17/19 10/18/19 History aspirin [Aspir-81] 81 mg PO BID 10/17/19 10/18/19 History levothyroxine 88 mcg PO QAM 10/17/19 10/18/19 History lorazepam 2 mg PO TID PRN 10/17/19 10/18/19 History omeprazole 40 mg PO BID 10/17/19 10/18/19 History ondansetron 4 mg TRANSLINGUAL Q8H PRN 10/17/19 10/18/19 History Inpatient Medication List Aspirin (Aspirin 81 Mg Ectab) 81 mg PO BID JANES Stop: 11/17/19 20:59 Last Admin: 10/19/19 08:26 Dose: 81 mg Documented by: [id number] Admin: 10/18/19 20:42 Dose: 81 mg Documented by: [id number] Enoxaparin Sodium (Enoxaparin Inj 40 Mg/0.4 Ml Syr) 40 mg SQ Q24H JANES Stop: 11/18/19 08:59 Last Admin: 10/19/19 08:26 Dose: 40 mg Documented by: [id number] Sodium Chloride (Nss 1000ml) 1,000 mls @ 125 mls/hr IV .Q8H JANES Stop: 11/17/19 12:27 Last Admin: 10/19/19 07:41 Dose: 125 mls/hr Documented by: [id number] Infusion: 10/19/19 07:24 Dose: 125 mls/hr Documented by: [id number] Admin: 10/18/19 23:24 Dose: 125 mls/hr Documented by: [id number] Infusion: 10/18/19 21:47 Dose: 125 mls/hr Documented by: [id number] Admin: 10/18/19 13:47 Dose: 125 mls/hr Documented by: [id number] Levetiracetam (Levetiracetam 500 Mg Tab) 500 mg PO BID JANES Stop: 11/17/19 20:59 Last Admin: 10/19/19 08:27 Dose: 500 mg Documented by: [id number] Admin: 10/18/19 20:42 Dose: 500 mg Documented by: [id number] Levothyroxine Sodium (Levothyroxine Sodium 88 Mcg Tablet) 88 mcg PO DAILYBB JANES Stop: 11/18/19 06:29 Last Admin: 10/19/19 05:54 Dose: 88 mcg Documented by: [id number] Lorazepam (Lorazepam 1 Mg Tab) 2 mg PO TID PRN PRN Reason: Anxiety Stop: 11/17/19 12:32 Last Admin: 10/18/19 21:25 Dose: 2 mg Documented by: [id number] Morphine Sulfate (Morphine Sulfate 2 Mg/Ml Carp) 2 mg IV Q4 PRN PRN Reason: Pain Stop: 11/01/19 13:36 Last Admin: 10/18/19 23:24 Dose: 2 mg Documented by: [id number] Admin: 10/18/19 13:47 Dose: 2 mg Documented by: [id number] Ondansetron HCl (Ondansetron Inj 2 Mg/Ml 2 Ml Vial) 4 mg IV Q4H PRN PRN Reason: Nausea And Vomiting Stop: 11/17/19 12:27 Last Admin: 10/18/19 23:24 Dose: 4 mg Documented by: [id number] Pantoprazole Sodium (Pantoprazole 40 Mg Tab) 40 mg PO BID JANES Stop: 11/17/19 20:59 Last Admin: 10/19/19 08:26 Dose: 40 mg Documented by: [id number] Admin: 10/18/19 20:42 Dose: 40 mg Documented by: [id number] Discontinued Medications Enoxaparin Sodium (Enoxaparin 80 Mg/0.8 Ml Syr) 70 mg SQ Q12H [facility] Stop: 11/17/19 15:59 Last Admin: 10/18/19 17:27 Dose: 70 mg Documented by: [id number] Gadobutrol (Gadobutrol 65ml Vial) 7 ml IV ONCE ONE Stop: 10/18/19 16:24 Last Admin: 10/18/19 16:23 Dose: 7 ml Documented by: [id number] Sodium Chloride (Nss 1000ml) 1,000 mls @ 999 mls/hr IV .Q1H1M ONE Stop: 10/18/19 09:24 Last Infusion: 10/18/19 10:56 Dose: 0 mls/hr Documented by: [id number] Admin: 10/18/19 09:17 Dose: 999 mls/hr Documented by: [id number] Levetiracetam 1,000 mg/ Sodium (Chloride) 110 mls @ 440 mls/hr IV NOW STA Stop: 10/18/19 09:33 Last Infusion: 10/18/19 10:11 Dose: 0 mls/hr Documented by: [id number] Admin: 10/18/19 09:49 Dose: 440 mls/hr Documented by: [id number] Potassium Acetate 10 meq/ (Sodium Chloride) 105 mls @ 105 mls/hr IV Q1H JANES Stop: 10/18/19 12:14 Last Infusion: 10/18/19 12:36 Dose: 0 mls/hr Documented by: [id number] Admin: 10/18/19 11:35 Dose: 105 mls/hr Documented by: [id number] Infusion: 10/18/19 11:34 Dose: 0 mls/hr Documented by: [id number] Admin: 10/18/19 10:27 Dose: 105 mls/hr Documented by: [id number] Ioversol (Ioversol 100ml) 93 ml IV ONCE ONE Stop: 10/18/19 09:17 Last Admin: 10/18/19 09:16 Dose: 93 ml Documented by: [id number] Ioversol (Optiray 320 125ml) 116 ml IV ONCE ONE Stop: 10/18/19 16:37 Last Admin: 10/18/19 16:38 Dose: 116 ml Documented by: [id number] Lorazepam (Lorazepam 2 Mg/4 Ml Vial) Confirm Administered Dose 4 mg .ROUTE .STK- MED ONE Stop: 10/18/19 09:11 Last Increment: 10/18/19 09:12 Dose: 2 mg Documented by: [id number] Ondansetron HCl (Ondansetron Inj 2 Mg/Ml 2 Ml Vial) 4 mg IV NOW STA Stop: 10/18/19 10:29 Last Admin: 10/18/19 10:31 Dose: 4 mg Documented by: [id number] Description This is a 21 electrode EEG with a single channel dedicated to limited EKG. The electrodes were placed in accordance with the International 10-20 system. History: possible seizure Rx: joe ativan Start/Stop: 8:02am/8:22am Attending reading: Lissa Anthony EEG Description: EEG background: Background was 9-11 Hz alpha rhythm with overriding 12-15 Hz beta. A brief 9 second epoch of right frontocentral 5-6Hz theta slowing was noted, with no evolution c/w electrographic seizure (maximal F4). A well formed 9-10 Hz posterior dominant rhythm was observed. The EEG is continuous. There is variability and reactivity present. Activation and reactivity: Photic stimulation performed without any abnormalities noted. No photic driving observed. Hyperventilation was not performed. Sleep: Patient was briefly drowsy, no sleep architecture noted. Epileptiform discharges: No epileptiform discharges were observed. Rhythmic and periodic patterns: None Seizures: None Impression: This was a mildly abnormal EEG due to the presence of brief right frontocentral slowing. This suggests an area of focal cortical dysfunction. Beta activity is likely a medication effect. No seizures or epileptiform discharges were seen. Clinical correlation required. [facility] EEG Procedure Codes Indication for Procedure (1) Seizure: (2) Altered mental status: Neurology Neurology: 13069 EEG include record awake & drowsy
--- NOTE | 2019-10-19 15:47 | Hospitalist Progress Note ---
Date of Service October 19, 2019 Assessment & Plan (1) Seizure: Staff was alerted by who then saw the pt gasping for air, no tonic/jerking/tremor movements. Loaded with Ativan and Keppra. Cont ativan IV prn for seizure activity, seizure precautions. - Consulted neurology - Appreciate recs - MRI of brain shows small vessel disease only. - PT/OT consults (2) Hypertension: History of such, not on any oral antihypertensives. - BP presently 145/80. Will defer starting medication quite yet. (3) Essential thrombocytosis: Hx of such - previously was on hydroxyurea in September 2018, stopped taking this medicine around 01/2019 for alopecia. - Discussed with Dr. Miranda. Will need to re-address hydroxyurea with the patient as this is the only medication that is really approved for it at this time. - Continue baby aspirin 81 mg BID (4) History of breast cancer: Remote history of such, currently in remission, status post mastectomy right sided, radiation and chemotherapy. (5) Lymphedema: Chronic RUE due to mastectomy. (6) DVT prophylaxis: - teds, scds, ASA Admission and Anticipated Discharge Date Admission Date: October 18, 2019 Subjective No further seizure/syncope today. Feels well overall. Reports no fevers/chills, chest pain, shortness of breath, abdominal pain, nausea, or vomiting. Physical Exam Constitutional: WD/WN, vitals as above Eyes: EOM intact bilaterally; no conjunctival abnormality ENMT: external ear and nose normal, oropharynx normal Neck: trachea midline, no thyromegaly normal visual inspection Respiratory: normal respiratory effort, lungs clear to auscultation no respiratory distress Cardiovascular: RRR, no murmur, no edema Gastrointestinal (Abdomen): Inspection/Auscultation: abdomen normal to inspection; abdomen not distended Musculoskeletal: no cyanosis or clubbing, extremities motor strength 5/5 Skin: no rashes, warm and dry Neurologic: moves all extremities and awake Psychiatric: Orientation: alert, oriented to person and cooperative Results & Data Results & Data ([facility]) Vital Signs (Past 12 Hours) Vital Signs Temp Pulse Pulse Resp BP BP Pulse Ox 10/19/19 15:26 84 10/19/19 15:11 36.7 C 89 18 146/78 H 94 10/19/19 11:34 36.6 C 78 19 136/79 97 10/19/19 08:22 80 10/19/19 07:17 36.5 C 78 19 118/68 93 10/19/19 04:00 36.9 C 79 20 109/69 93 PG Care Time/CCT Total # of Minutes Spent Total Time Spent with Patient: Total time spent is greater than 50% in coordination of care (as documented) at patient's floor/unit and/or counseling patient: Coding Level of Care Code 64096 Subseq Hosp Care Lvl 2 Diagnoses Seizure R56.9 Hypertension I10 Essential thrombocytosis D47.3 History of breast cancer Z85.3 Lymphedema I89.0 DVT prophylaxis Z29.9
[2019-10-19] MEDS ORDERED: POTASSIUM CHLORIDE 20 MEQ TABCR PO STA (15:48)
[2019-10-19] MEDS ORDERED: LORazepam 1 MG TAB PO PRN (15:53)
[2019-10-19] MEDS: LORazepam 1 MG TAB PO PRN (19:11)
[2019-10-19] MEDS: ACETAMINOPHEN 325 MG TAB PO PRN (21:07)
[2019-10-20] MEDS: ACETAMINOPHEN 325 MG TAB PO PRN (00:57)
[2019-10-20] MEDS: LORazepam 1 MG TAB PO PRN (05:22)
[2019-10-20] MEDS: LEVOTHYROXINE SODIUM 88 MCG TABLET PO SCH (05:22)
[2019-10-20] MEDS ORDERED: IBUPROFEN 200 MG TAB PO PRN (06:06)
[2019-10-20 06:17] LABS: Hematocrit (blood only) 39.1 % (37-47); Hemoglobin 13.3 g/dL (12.0-16.0); Mean Corpuscular Hemoglobin 32.6 pg (25-34); Mean Corpuscular Volume 95.8 fL (80-100); Mean Platelet Volume 8.6 fL (7.4-10.4); Platelet Count 895 K/uL (130-400); RDW Coefficient of Variation 13.4 % (11.5-14.5); RDW Standard Deviation 47.1 fL (36.4-46.3); Red Blood Count 4.08 M/uL (4.2-5.4); White Blood Count 9.92 K/uL (4.8-10.8)
[2019-10-20 06:48] LABS: Albumin Level 3.5 gm/dl (3.4-5.0); BUN Creatinine Ratio 6.1 (10-20); Calcium 9.3 mg/dl (8.5-10.1); Creatinine Clr Calc Pharmacy 72.9 ml/min; Est GFR (Non-African American) 89.8; Potassium 3.1 mmol/L (3.5-5.1)
[2019-10-20 06:53] LABS: Albumin Globulin Ratio 0.9 (0.9-2); Bilirubin,Total 1.7 mg/dl (0.2-1); Total Protein 7.5 gm/dl (6.4-8.2)
[2019-10-20] MEDS ORDERED: POTASSIUM CHLORIDE 20 MEQ TABCR PO STA (07:36)
[2019-10-20] MEDS: ASPIRIN 81 MG ECTAB PO SCH (08:27)
[2019-10-20] MEDS: ENOXAPARIN INJ 40 MG/0.4 ML SYR SQ SCH (08:28)
[2019-10-20] MEDS: PANTOprazole 40 MG TAB PO SCH (08:28)
--- NOTE | 2019-10-20 16:14 | Discharge Summary ---
Date of Service October 20, 2019 Admission HPI Per Admitting Provider This is a 79 yo F with PMHx of HTN, aortic valve sclerosis, essential thrombocytosis, lymphedema of the upper extremity, mitral valve regurgitation, GERD, prolonged QT interval, remote hx of breast cancer dxin the 1980s s/p mastectomy, radiation and chemotherapy with chronic RUE lymphedema as a result and is prone to cellulitis in that arm. She also has hx of recurrent UTIs. The patient has previously followed with Dr. Reina. She has had elevated platelet count ranging from 425-538K since September 2017. Prior to 2016 her platelet count was 200-300 K range, her platelets since have remained in the 500-600 range. 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 She has otherwise no history of thrombocytosis, but given age >60, she was started on Hydrea 500 mg daily in mid September 2018. The patient had complaints of nausea, back pain, feeling lousy on Wednesday. She went to see her PCP, Dr. Do on Wednesday. She was brought into the ER yesterday, 10/16 for complaints of back pain and weakness, nausea and abdominal discomfort, she was diagnosed with BPPV and sent home with Zofran and Ativan. This morning patient woke up to take her normally scheduled medications and walked back to the bedroom made to the doorway, and then slumped down towards the ground. witnessed this, denies LOC, hitting her head or experiencing other trauma. He called EMS. Patient was brought to the ER again and ER staff were alerted to the patient appearing sick by the at ~9:10am, when nursing arrived they report the patient was gasping for air and checked the pulse, no shaking/tremor. When asking the at bedside he cannot recall this happening earlier today and has difficulty telling me what occurred, and is also hard of hearing. Pt was loaded with Ativan 2 mg IV and Keppra 1000 mg. Yesterday her protein prior to the seizure event was elevated at 8.9, today is 8.6. Principal Diagnosis Possible seizure Discharge Exam Constitutional WD/WN, vitals as above Eyes EOM intact bilaterally; no conjunctival abnormality ENMT external ear and nose normal, oropharynx normal Neck trachea midline, no thyromegaly normal visual inspection Respiratory normal respiratory effort, lungs clear to auscultation no respiratory distress Cardiovascular RRR, no murmur, no edema Gastrointestinal (Abdomen) Inspection/Auscultation: abdomen normal to inspection; abdomen not distended Musculoskeletal no cyanosis or clubbing, extremities motor strength 5/5 Skin no rashes, warm and dry Neurologic moves all extremities and awake Psychiatric Orientation: alert, oriented to person and cooperative Discharge Data Allergies Allergy/AdvReac Type Severity Reaction Status Date / Time Cipro Allergy Mild HIVES Verified 12/28/15 15:11 ciprofloxacin Allergy Mild HIVES Verified 10/18/19 09:00 amoxicillin Allergy Verified 10/18/19 09:00 cephalexin [From Keflex] Allergy Verified 10/18/19 09:00 clavulanic acid Allergy Verified 10/18/19 09:00 [From Augmentin] doxycycline Allergy Verified 10/18/19 09:00 meclizine Allergy Verified 10/18/19 09:00 Sulfa (Sulfonamide Allergy Verified 10/18/19 09:00 Antibiotics) Consultations 10/18/19 10:06 ED Decision to Admit Stat 10/18/19 12:28 Consult Case Management - Discharge Planning Routine Consult Neurology Routine Ordered Studies 10/18/19 08:24 CT cervical spine wo con Stat CT head/brain wo con Stat 10/18/19 08:25 CT abd pelvis IV con only Stat 10/18/19 12:28 MR brain wo/w con Routine 10/18/19 12:38 MR venography head wo con Urgent 10/18/19 15:19 CT angio chest PE protocol Routine Hospital Course (1) Seizure: Staff was alerted by who then saw the pt gasping for air, no tonic/jerking/tremor movements. Loaded with Ativan and Keppra. Cont ativan IV prn for seizure activity, seizure precautions. - Consulted neurology - Appreciate recs - MRI of brain on 10/17 showed small vessel disease only. - EEG on 10/18 did not show any epileptiform activity. - PT/OT consults -> Did ok. - In the end, it was not clear this was a seizure. Discharged OFF Keppra or other anti-epileptic medication. Plan to TAPER her benzo from Ativan 2 mg TID to BID, then 1 mg PO BID PRN, then daily PRN, then stop. - In place, started escitalopram 5 mg PO daily. This is a low dose and the side effect profile hopefully is fairly good for her. Will adjust as needed with her PCP. (2) Hypertension: History of such, not on any oral antihypertensives. - BP presently 150/90. Should discuss with PCP regarding home BPs. (3) Essential thrombocytosis: Previously was on hydroxyurea in September 2018, stopped taking this medicine around 01/2019 for alopecia. - Discussed with Dr. Miranda who recommended restarting hydroxyurea; however, the patient was not willing to do so due to her prior alopecia. Understood the risk of stroke is increased. Was willing to see Renay Vallejo in the clinic to discuss alternatives. - Continue aspirin 81 mg PO BID (4) History of breast cancer: Remote history, currently in remission, status post mastectomy right sided, radiation and chemotherapy. (5) Lymphedema: Chronic RUE due to mastectomy. (6) DVT prophylaxis: - teds, scds, ASA Total Time Total Time Spent Total Time Spent (In Minutes): 35 Discharge Plan Discharge Items Patient Disposition: Home - Self-Care Reason For Visit: FALL, SEIZURE Discharge Diagnosis: Fall Activity: Resume your previous activity Non-emergency contact: Primary Care Provider Call non-emergency contact if: your symptoms worsen Follow-up/Referrals: Gregorio Do MD [Primary Care Provider] - 10/23/19 11:10 am (You have an appt with Dr Do on Wednesday at 1110. Please arrive 15 minutes prior to the appt time. Remember to wear your face mask. If this appt does not fit into your schedule please call [phone]. ) Jerri Burrows PA-C [Physician Employment Supervisor] - 10/26/19 11:30 am (You have an appt with Jerri LOZANO on October 25 at 1130. Please arrive 15 minutes prior to your appt. Rememebr your face mask. If this appt does not fit your schedule please call [phone] to reschedule. ) Renay Vallejo PA-C [Nurse Practitioner] - 11/01/19 11:30 am (You have an appt with Renay LOZANO WednesdayOctober 31 at 1130. Please arrive 15 minutes prior to your appt time, and remember to bring your face mask. If this appt time does not fit your schedule please call [phone] to reschedule. ) Diet: Regular Addtl Attending Provider Instructions: You were admitted to the hospital after a concerning spell that we were worried was a seizure. It's not clear whether this was or not, though we think possible this was more a medication reaction. We did an MRI of the brain which did NOT show any stroke or tumor. We also did an EEG (a study that looks at your brain waves) which did NOT show any area of the brain that would be prone to starting seizures. This is all great news! You have a history of anxiety and have been on Ativan (lorazepam) for years. Ativan is not an ideal medication as it can cause drowsiness, dizziness, and even falls. These effects can stack up if you take both Valium (diazepam) and Ativan together. Because you have been on the Ativan for a long time, it is not recommended to stop it suddenly. We are starting you on a new medication that will hopefully eventually replace the Ativan. Please start the escitalopram 5 mg by mouth once daily. Taper your Ativan to 2 times daily as needed. Please avoid taking a third dose in one day. Dr. Do can then switch you to 1 mg tablets which you can take twice a day. Ideally, then you would move to once a day, then stop all together or maybe only take 1 mg pill a few times per month. Dr. Do can also increase the escitalopram as needed. It can take up to 4 weeks to have full effect, and we are starting you on a low dose. Finally, your platelets were high in the hospital which is something you've had for a long time. High platelets can increase the risk of stroke or other blood clots. Please continue taking your aspirin 81 mg two times per day. Please see Chris Genevieve in the [facility] in the next 2-4 weeks to discuss other treatment options as you were reluctant to try the hydroxyurea again due to hair loss. Pending Studies at Discharge: No Stand-Alone Forms: My English Helper, Smoking Cessation Medications and DC Order Prescriptions: New escitalopram oxalate 5 mg tablet 5 mg PO DAILY Qty: 30 RF: 0 Continued aspirin [Aspir-81] 81 mg Tablet,Delayed Release (Dr/Ec) 81 mg PO BID RF: 0 levothyroxine 88 mcg tablet 88 mcg PO QAM RF: 0 omeprazole 40 mg capsule,delayed release(DR/EC) 40 mg PO BID RF: 0 ondansetron 4 mg tablet,disintegrating 4 mg translingual Q8H PRN (Reason: Nausea) RF: 0 acetaminophen 325 mg Tablet 650 mg PO QID PRN (Reason: Pain) RF: 0 Changed lorazepam 2 mg tablet 2 mg PO BID PRN (Reason: Anxiety) Qty: 0 RF: 0 Discharge Orders: Discharge Order (Routine); Ordered 10/20/19 Ordered By: Vasile Malloy Admission Data Admit Date/Time: 10/18/19 11:07 Attending Provider: Vasile Malloy Admit Provider: Amparo Plascencia Primary Care Provider: Gregorio Do Other Providers: Vasile Malloy ; Umberto Mae ; Vy Anthony Other Interventions: Discharge Summary Assessment (RN) Last Done: 10/20/19 11:58 Coding Level of Care Code D/C Day Management >30 mins Diagnoses Seizure R56.9 Hypertension I10 Essential thrombocytosis D47.3 History of breast cancer Z85.3 Lymphedema I89.0 DVT prophylaxis Z29.9
== END 2019-10-20 13:04 | disposition home or self-care (01) | DRG 101 ==
LOC: ED 08:14 → 2S 11:07 → SUATTDRO 11:07 → 2S 12:10 → 2N 10-19 16:15

== ENCOUNTER 2020-02-07 05:30 | Inpatient (IN) ==
--- NOTE | 2020-01-30 09:06 | Anesthesiology Consultation ---
Date of Service January 30, 2020 Assessment & Plan (1) Encounter for pre-operative examination: Patient was scheduled for a DSE, recommended by cardiology due to coronary calcifications on chest CT, atypical chest pain and BISWAS. DSE was to be done 01/24 but patient fractured her shoulder on 01/23 and no-showed to appointment. Dr. Lo recommending DSE be done prior to elective surgery. Spoke to Cindy at surgeon's office. They will speak to Dr. Lo as well, and likely R/S surgery until after DSE. Chart Review Chart Review: Pending: Refer to Additional Notes / Consult section and Patient NOT seen in Pre Admission Testing History Surgery Operation Date: 01/31/20 09:50 Proposed Procedures p Right Reverse Total Shoulder Arthroplasty - Carlos A Maulik Horne MD Allergies Allergy/AdvReac Type Severity Reaction Status Date / Time Cipro Allergy Mild HIVES Verified 12/28/15 15:11 ciprofloxacin Allergy Mild HIVES Verified 01/04/20 12:43 amoxicillin Allergy Verified 01/04/20 12:43 cephalexin [From Keflex] Allergy Verified 01/04/20 12:43 clavulanic acid Allergy Verified 01/04/20 12:43 [From Augmentin] doxycycline Allergy Verified 01/04/20 12:43 meclizine Allergy Verified 01/04/20 12:43 Sulfa (Sulfonamide Allergy Verified 01/04/20 12:43 Antibiotics) Medications Home Medications Medication Instructions Recorded Confirmed Last Taken levothyroxine 88 mcg PO QAM 10/17/19 01/04/20 12/22/19 omeprazole 40 mg PO BID 10/17/19 01/04/20 12/22/19 ondansetron 4 mg TRANSLINGUAL Q8H PRN 10/17/19 01/04/20 Unknown lorazepam 2 mg PO BID PRN #0 tab 10/20/19 01/04/20 12/22/19 07:30 2 mg acetaminophen [Tylenol Extra 1,000 mg PO BID 12/22/19 01/04/20 12/22/19 Strength] anagrelide 0.5 mg PO BID 12/22/19 01/04/20 12/22/19 aspirin [Aspir-81] 81 mg PO BID 12/22/19 01/04/20 12/22/19 Past Medical History Medical History (Updated 01/30/20 @ 11:36 by Guru Johnston) Anxiety Atypical chest pain Evaluated in ED 12/22/19. Negative troponins. [place] [facility], felt episode was non-ischemic given CP is reproducible on exam and negative troponin, but DSE ordered to r/o as coronary artery calcifications were noted on CT scan 12/22/19. CAD (coronary artery disease) CT scan reported densely calcified coronary arteries. Dobutamine stress echo ordered by Dr. Lo given dyspnea with exertion and atypical chest pain. Patient was a no-show for the DSE. Essential thrombocytosis Chronic, platelets have been as high as >1000, usually in the 500-600 range. 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 Hydroxyurea started 09/2018, but d/c'd by patient due to SE of alopecia. Now on Anagrelide, most recent platelet count WNL at 219. History of breast cancer chemo 35 years ago Hypertension hx of and no meds Hypothyroidism Lymphedema right Vertigo Past Family History Family History Family/Other Kidney stones Hypertension Heart disease Lung cancer Liver cancer Breast cancer ALS (amyotrophic lateral sclerosis) Past Surgical History Surgical History (Updated 01/30/20 @ 07:45 by Marie Wright RN) H/O mastectomy right S/P cholecystectomy Social History Smoking Status: Never smoker Hx Alcohol Use: No Hx Substance Use: No
[~2020-02-07 05:30] MED LIST changes: -ASPI1TAB83 PO; -ATV2 PO; -CYCL0.052 OPB; +CeleBREX 200 MG CAP PO SCH; -LEVO100T7 PO; +LR 60ML/HR IV SCH; -NITR-90 PO; -OMEP20CA9 PO; +PATIENT'S HEIGHT AND/OR WEIGHT NEEDED SCH; +ROPIVACAINE 0.5% HCL/PF 150 MG, BUPIVACAINE 0.75% MPF 20 ML, EPINEPHrine 0.15 MG, Ketor... INFIL SCH; +Scopolamine CHECK PATCH PLACEMENT SCH; +TRANEXAMIC ACID 1,000 MG **IV Intra-op IV SCH; +TRANEXAMIC ACID 1,000 MG **IV Pre-op IV SCH
[2020-02-07] MEDS ORDERED: CeleBREX 200 MG CAP PO SCH (06:00)
[2020-02-07] MEDS ORDERED: ROPIVACAINE 0.5% HCL/PF 150 MG, BUPIVACAINE 0.75% MPF 20 ML, EPINEPHrine 0.15 MG, Ketor... INFIL SCH (06:00)
[2020-02-07] MEDS ORDERED: TRANEXAMIC ACID 1,000 MG **IV Intra-op IV SCH (06:00)
[2020-02-07] MEDS ORDERED: VANCOMYCIN HCL 1,000 MG in SODIUM CHLORIDE 0.9% 250 ML IV SCH ×2 (06:00→18:30)
[2020-02-07] MEDS ORDERED: LR 60ML/HR IV SCH (06:00)
[2020-02-07] MEDS ORDERED: TRANEXAMIC ACID 1,000 MG **IV Pre-op IV SCH (06:00)
[2020-02-07] MEDS ORDERED: LR 15ML/HR IV SCH (06:00)
[2020-02-07] MEDS ORDERED: ROPIVACAINE 0.5% 5 MG/ML 30 ML VIAL ONE (06:23)
[2020-02-07] MEDS ORDERED: PROPOFOL IV EMULSION 10 MG/ML 20 ML VIAL IV ONE ×2 (07:35→13:02)
[2020-02-07] MEDS ORDERED: MIDAZOLAM HCL 1 MG/ML 2ML VIAL ONE (07:35)
[2020-02-07] MEDS ORDERED: ONDANSETRON INJ 2 MG/ML 2 ML VIAL ONE (07:35)
[2020-02-07] MEDS ORDERED: DEXAMETHASONE SOD INJ 4 MG/ML VIAL ONE (07:35)
[2020-02-07] MEDS ORDERED: NEOSTIGMINE METHYLSULFATE 5 MG/5 ML SYR ONE ×2 (07:35→09:33)
[2020-02-07] MEDS ORDERED: fentaNYL citrate 100 MCG/2 ML VIAL ONE ×3 (07:35→13:02)
[2020-02-07] MEDS ORDERED: ROCURONIUM BROMIDE 10 MG/ML 5 ML VIAL IV ONE (07:35)
[2020-02-07] MEDS ORDERED: GLYCOPYRROLATE 0.2 MG/ML VIAL ONE ×2 (07:35→09:33)
--- NOTE | 2020-02-07 07:47 | History & Physical Bridge Note ---
Date of Service February 07, 2020 History & Physical Bridge Note I have examined the patient, reviewed the History & Physical and in the interval since the performance of the History & Physical I have noted the following changes of clinical significance: no changes noted Patient is aware of the risks, is asymptomatic, and tested negative for COVID- 19.
[2020-02-07] MEDS ORDERED: PROPOFOL IV EMULSION 10 MG/ML 100 ML VIAL IV ONE (08:19)
[2020-02-07] MEDS ORDERED: ONDANSETRON INJ 2 MG/ML 2 ML VIAL IV PRN ×2 (08:31→13:51)
[2020-02-07] MEDS ORDERED: ATROPINE SULFATE 0.1 MG/ML 10ML SYR IV PRN (08:31)
[2020-02-07] MEDS ORDERED: HYDROmorphone INJ 1 MG/ML SYRINGE IV PRN (08:31)
[2020-02-07] MEDS ORDERED: ePHEDrine sulfate 50 MG/ML SYR ONE (09:32)
[2020-02-07] MEDS ORDERED: LARYING-O-JET KIT (LTA) ONE (09:35)
[2020-02-07] MEDS ORDERED: PHENYLEPHRINE HCL 10 MG/ML VIAL ONE (10:33)
--- NOTE | 2020-02-07 13:33 | Post Operative Brief Note ---
Immediate Post Op Note v1 Date of Surgery February 07, 2020 Pre & Post Diagnosis Operation Date: 02/07/20 08:00 Pre-Op Diagnosis: Right Proximal Humerus Fracture Post-Op Diagnosis: Right Proximal Humerus Fracture I identified the patient and participated in the time-out.: Yes Procedure Operation Date: 02/07/20 08:00 Actual Procedures p Right Reverse Total Shoulder Arthroplasty, with repair of the greater and Lesser Tuberosities (Right) - Carlos A Horne MD Surgeon Carlos A Horne MD Web Site Developer Monique Bennett MD & MOIRA Apple PA-C Estimated Blood Loss 75 Findings Consistent with Post-Op Diagnosis Fluids 700 cc Anesthesia Type General Regional Complications none
--- NOTE | 2020-02-07 13:37 | Operative Report ---
Post Operative Report Pre & Post Diagnosis Operation Date: 02/07/20 08:00 Pre-Op Diagnosis: Right Proximal Humerus Fracture Post-Op Diagnosis: Right Proximal Humerus Fracture I identified the patient and participated in the time-out.: Yes Procedure Operation Date: 02/07/20 08:00 Actual Procedures p Right Reverse Total Shoulder Arthroplasty(Right) - Carlos A Horne MD Surgeon Carlos A Horne MD Rn Transition Monique Bennett MD & MOIRA Apple PA-C Estimated Blood Loss 75 Findings See Below 4 part displaced, comminuted, proximal humerus fracture, with humeral head displaced posterior and medial to glenoid. Significant adhesions on the fracture fragments. Fluids 700 cc Specimens Humeral Head Anesthesia Type General Regional Complications none Indications Patient is a 79-year-old female who sustained aright proximal humerus fracture over 2 weeks ago with pain and decreased mobility. I recommended that she undergo a right shoulder Reverse TSA. The patient understands the risks of the operation including bleeding, infection, re-operation, damage to nerves and arteries, continued shoulder pain, shoulder stiffness, infection, and/or loosening of the components which may require additional surgery. The patient also understands the risks of heart attack, stroke, pulmonary embolus, and . The patient wished to proceed and the consent form was signed. Description of Procedure MOIRA Sawyer PA-C was present for the entire case from prepping and draping, to implant placement, closure, placement of dressings and sling and transition to hospital bed. He provided necessary retraction throughout. Monique Bennett MD was present form prepping and draping, to exposure, humeral head removal, implantation of the glenosphere, and trial humeral component and then he had to scrub out. IMPLANTS: Arthrex 1) Humeral Stem #6 Univers Reverse Stem, with size 36 Neutral Suture Cup at 135. 2) Humeral Liner 36, + 3 mm. 3) Glenoid Modular Baseplate 24 mm + 2mm LAT & Central Screw 10 x 25 mm. 4) Glenosphere 36 mm + 4mm LAT/24 offset. 5) Glenoid Locking screw 5.5 x 32 mm x 2. PROCEDURE: The patient was taken to the Operating Room and placed in the beach-chair position after administration of an interscalene block and general anesthesia. 2 g of intravenous Vancomycin was administered. The right shoulder was then prepped and draped in the standard sterile fashion. Sequential compression devices were placed in the legs. The patient was identified and a multidisciplinary time-out identified the right shoulder as the correct shoulder and operative limb. First, the deltopectoral incision and the bony landmarks were identified and marked. Sharp dissection was carried down to the deltopectoral interval. The cephalic vein was identified and protected laterally as was the deltoid. The clavipectoral fascia was then incised and a self-retaining shoulder retractor was placed beneath the conjoined tendon and deltoid muscle, exposing the subscapularis tendon. The superior 1cm of the pec major was released. The biceps tendon was identified in its groove and had degeneration it was tenodesed to the pec major tendon with #1 Vicryl. The biceps tendon was unroofed from its groove, and the rotator interval was split to the base of the coracoid and released from the glenoid. Next, the Lesser and greater tuberosities were identified and tagged with #1 Vicryl sutures. Blunt dissection was used to release any bursal sided adhesions from the greater and lesser tuberosities. The anterior capsule was freed from the subscapularis with blunt finger dissection. The anterior capsulotomy was carried down to the glenoid and the labrum was removed as well. The labrum was circumferentially removed. Next the arduous task of removing the humeral head from behind the posterior edge of the glenoid was under taken. There were significant adhesions that were released with finger dissection and a Carrillo elevator. A 90 degree Roz was placed posterior to the humeral head and the Guru retractor was used to elevate the humeral head up and away from the posterior lip of the glenoid to allow a Katherine to grasp the humeral head and remove it. Our attention was drawn to the glenoid. The humerus was retracted and displaced posteriorly. The glenoid was exposed with Derra retractor superiorly, Guru retractor anteriorly, and Batman retractor posteriorly. The glenoid was prepped the curettes to remove any remaining cartilage. Using the specific VIP patient specific glenoid aiming guide for a 24 mm baseplate was used to place the 2.8 mm guide wire. The glenoid surface was prepped for the baseplate with the glenoid reamers (peripheral and inferior offset). The modular central screw was prepped with cannulated 10 mm drill, then tapped to depth of 25 mm. The baseplate with central screw was screwed into place flush to the glenoid. The inferior screw hole was drilled first followed by the superior screw and a locking screws were placed. The glenosphere was inserted onto the baseplate and locked into place in the standard fashion. The inferior fragment of the calcar was bluntly freed and reduced superiorly with a Katherine while CerclageTape was placed around the humeral shaft in the standard fashion. The humeral intramedullary entry point was entered posterior to the bicipital groove sequential increased. The humeral broaches 5 through 7 were sequentially placed in the humeral shaft until excellent fit. The size 7 had to be removed as it was too proud and it could not be reduced. The size 6 was placed and seated at the appropriate level and had excellent rotational stability. The trials were placed and the shoulder was now able to be reduced and showed excellent tension on the Deltoid. The humeral trial liner was 3+ mm was placed. The shoulder was reduced with excellent fit and good stability of 1+ translation anteriorly and posteriorly. The shoulder ROM showed FF of 130 degree and Abduction of 140 degree. The trial humeral components were removed. Two #5 FiberWire sutures were placed through humeral shaft, 1 posterior and 1 anterior to the bicipital groove for repair of the tuberosities. The #6 stem was impacted into place with excellent purchase achieved. The humeral liner was +3 mm was placed. The shoulder was reduced with excellent fit with ROM and stability were unchanged. The Lesser and Greater Tuberosities were repaired with several 1.3mm SutureTape through the holes in the cup. These sutures were passed through the tuberosities with a free needle and tagged to be tied later. Starting superiorly and working inferiorly the Lesser Tuberosity was repaired first. The initial suture had been passed through both the Lesser and greater Tuberosities. The Greater tuberosity was repaired next. The ends of the FiberTape from the Cerclage were used to pass 1 limb through the Lesser Tuberosity and the other limb through the Greater Tuberosity at the level of the mid-portion of the small remaining gap between the tuberosities and tied. The prothesis was no longer visible. The ROM and stability were unchanged. The pulsatile lavage was used to copiously irrigate the wound throughout. The deltopectoral interval was re-approximated with 2-0-Vicryl, the subcutaneous tissue was closed with 3-0 Vicryl, and the skin was closed with ZipLine and Shield. The wounds were dressed with sterile gauze, and Tegaderms. The patient was then transferred to the PACU in stable condition after application of an abduction sling. POST-OP: The patient will be admitted. Patient will be seen by PT/OT prior to discharge. Pain medicine will be used as needed. I attest to the content of the Intraoperative Record and any orders documented therein. Any exceptions are noted below.
[2020-02-07] MEDS ORDERED: METOCLOPRAMIDE HCL INJ 5 MG/ML 2 ML VIAL IV PRN (13:51)
[2020-02-07] MEDS ORDERED: diphenhydrAMINE 50 MG/ML VIAL IV PRN (13:51)
[2020-02-07] MEDS ORDERED: HYDROmorphone INJ 0.5 MG/0.5 ML SYR IV PRN (13:51)
[2020-02-07] MEDS ORDERED: traMADol HCL 50 MG TABLET PO PRN (13:51)
[2020-02-07] MEDS ORDERED: NALOXONE HCL 0.4 MG/1 ML VIAL/CARP IV PRN (13:51)
[2020-02-07] MEDS ORDERED: bisacodyL 10 MG SUPP PR PRN (13:51)
[2020-02-07] MEDS ORDERED: ALUMINUM/MAGNESIUM SUSP 30 ML UDC PO PRN (13:51)
[2020-02-07] MEDS ORDERED: VANCOMYCIN CONSULT ACTIVE PRN (13:51)
[2020-02-07] MEDS ORDERED: MAGNESIUM HYDROXIDE SUSP 30 ML UDC PO PRN (13:51)
--- NOTE | 2020-02-07 13:51 | Operative Report ---
Post Operative Report Pre & Post Diagnosis Operation Date: 02/07/20 08:00 Pre-Op Diagnosis: Right Proximal Humerus Fracture Post-Op Diagnosis: Right Proximal Humerus Fracture I identified the patient and participated in the time-out.: Yes Procedure Operation Date: 02/07/20 08:00 Actual Procedures p Right Reverse Total Shoulder Arthroplasty(Right) - Carlos A Horne MD Surgeon Carlos A Horne MD Dramatic Arts Historian Monique Bennett MD & MOIRA Apple PA-C Estimated Blood Loss 75 Findings Consistent with Post-Op Diagnosis Specimens humeral head Complications none Disposition Accompanied Patient To Recovery: Yes Disposition: Recovery Room Description of Procedure I was present during the entire case assisting with positioning, prepping, draping, retraction, wound closure and dressing/sling application. Fellow present for most of case. I served as an extra set of hands. Please see Dr. Horne procedure note for specifics of the case. I attest to the content of the Intraoperative Record and any orders documented therein. Any exceptions are noted below.
[2020-02-07] MEDS ORDERED: ACETAMINOPHEN 500 MG TAB PO PRN (13:57)
--- NOTE | 2020-02-07 14:09 | Anesthesiology Progress Note ---
Date of Service February 07, 2020 Anesthesia Post Procedure Vital Signs Vital Signs: Temp Pulse Pulse Resp BP Pulse Ox 02/07/20 13:52 36.2 C L 94 H 18 96/61 L 100 02/07/20 06:01 36.8 C 105 H 20 161/95 H 97 Pain Intensity Right Arm: Pain Intensity: 5 Transfer of Care Handoff Completed per policy Notes Mental Status: alert / awake / arousable Patient Amnestic to Procedure: Yes Nausea / Vomiting: adequately controlled Pain: adequately controlled Airway Patency, RR, SpO2: stable & adequate BP & HR: stable & adequate Hydration State: stable & adequate Anesthetic Complications: no major complications apparent
--- NOTE | 2020-02-07 14:30 | XRay Report ---
XR shoulder RT min 2V routine CLINICAL HISTORY: Post shoulder surgery COMPARISON STUDY: None. FINDINGS: Status post reverse right total shoulder arthroplasty. The hardware appears intact. No frac ture or dislocation. Skin winifred are noted within the axilla. IMPRESSION: Status post reverse right total shoulder arthroplasty. ACT 112: Negative or not required by law. Electronically signed by: Ignacio Love M.D. 02/07/2020 2:28 PM
[2020-02-07] MEDS ORDERED: ONDANSETRON 4 MG OD TAB PO PRN (15:10)
[2020-02-07] MEDS: SODIUM CHLORIDE 0.9% 1000ML 1,000 ML IV SCH (15:28)
[2020-02-07] MEDS: Scopolamine CHECK PATCH PLACEMENT SCH (15:36)
[2020-02-07] MEDS: ACETAMINOPHEN 500 MG TAB PO SCH ×2 (15:37→21:14)
[2020-02-07] MEDS: KETOROLAC TROMETHAMINE 15 MG/ML VIAL IV SCH ×2 (15:38→21:14)
[2020-02-07] MEDS: FERROUS GLUCONATE 324 MG TAB PO SCH (17:13)
[2020-02-07] MEDS: ASCORBIC ACID 500 MG TAB PO SCH (17:13)
[2020-02-07] MEDS ORDERED: TRANEXAMIC ACID / 0.7% NACL 1,000 MG/100 ML BAG IV SCH (20:00)
[2020-02-07] MEDS ORDERED: ASPIRIN 81 MG ECTAB PO SCH (21:00)
[2020-02-07] MEDS ORDERED: SENNA 8.6 MG TAB PO SCH (21:00)
[2020-02-07] MEDS: ASPIRIN 81 MG ECTAB PO SCH (21:13)
[2020-02-07] MEDS: PANTOprazole 40 MG TAB PO SCH (21:13)
[2020-02-07] MEDS: DOCUSATE SODIUM 100 MG CAP PO SCH (21:14)
[2020-02-07] MEDS: LORazepam 1 MG TAB PO PRN (22:50)
[2020-02-08] MEDS: Scopolamine CHECK PATCH PLACEMENT SCH ×2 (00:48→09:23)
[2020-02-08] MEDS: SODIUM CHLORIDE 0.9% 1000ML 1,000 ML IV SCH (02:45)
[2020-02-08] MEDS: KETOROLAC TROMETHAMINE 15 MG/ML VIAL IV SCH (03:04)
[2020-02-08] MEDS: LORazepam 1 MG TAB PO PRN (04:55)
[2020-02-08 05:31] LABS: Basophils # (auto) 0.01 K/uL (0-0.2); Basophils % (auto) 0.1 %; Eosinophils # (auto) 0.02 K/uL (0-0.5); Eosinophils % (auto) 0.2 %; Hematocrit (blood only) 31.5 % (37-47); Hemoglobin 10.5 g/dL (12.0-16.0); Immature Granulocytes # (auto) 0.05 K/uL (0.00-0.02); Immature Granulocytes % (auto) 0.4 %; Lymphocytes % (auto) 10.7 %; Mean Corpuscular Hemoglobin 32.5 pg (25-34); Mean Corpuscular Hgb Conc 33.3 g/dL (32-36); Mean Corpuscular Volume 97.5 fL (80-100); Mean Platelet Volume 8.4 fL (7.4-10.4); Monocytes # (auto) 1.04 K/uL (0.11-0.59); Monocytes % (auto) 7.9 %; Neutrophils # (auto) 10.57 K/uL (1.4-6.5); Neutrophils % (auto) 80.7 %; Platelet Count 808 K/uL (130-400); RDW Coefficient of Variation 14.6 % (11.5-14.5); RDW Standard Deviation 51.9 fL (36.4-46.3); Red Blood Count 3.23 M/uL (4.2-5.4); White Blood Count 13.09 K/uL (4.8-10.8)
[2020-02-08 06:04] LABS: BUN Creatinine Ratio 9.8 (10-20); Calcium 8.7 mg/dl (8.5-10.1); Est GFR (African American) 98.4; Est GFR (Non-African American) 84.9; Potassium 3.7 mmol/L (3.5-5.1)
[2020-02-08] MEDS: ACETAMINOPHEN 500 MG TAB PO SCH (06:17)
[2020-02-08] MEDS ORDERED: LEVOTHYROXINE SODIUM 88 MCG TABLET PO SCH (06:30)
[2020-02-08] MEDS ORDERED: dexAMETHasone 4 MG TAB PO SCH (08:00)
[2020-02-08] MEDS ORDERED: MULTIVITAMIN TAB PO SCH (09:00)
[2020-02-08] MEDS: FERROUS GLUCONATE 324 MG TAB PO SCH (09:21)
[2020-02-08] MEDS: ASPIRIN 81 MG ECTAB PO SCH (09:22)
[2020-02-08] MEDS: DOCUSATE SODIUM 100 MG CAP PO SCH (09:22)
[2020-02-08] MEDS: PANTOprazole 40 MG TAB PO SCH (09:22)
[2020-02-08] MEDS: ASCORBIC ACID 500 MG TAB PO SCH (09:22)
--- NOTE | 2020-02-08 14:05 | Discharge Summary ---
Date of Service February 08, 2020 Admission HPI Per Admitting Provider HPI: 79-year-old female is seeing me today for history and physical preop examination leading up to surgery with Dr. Horne scheduled for 01/31/2020. The surgery consists of a right reverse total shoulder arthroplasty. This is a right-hand dominant female who fell on January 22 and initially did not have pain until the next day. She was worked up for a blood clot, cellulitis, does have a history of lymphedema. Eventually, a CT scan of her humerus was performed, which revealed a proximal humerus fracture. She saw Dr. Horne and he discussed the option of surgical intervention, which she is scheduled for on the . Patient's past medical history is significant for anxiety, aortic valve sclerosis, benign essential hypertension, deficiency of vitamin B12, depression, dilated aortic root, essential thrombocytosis, female cystocele, GERD without esophagitis, hypothyroidism, hypovitaminosis D, lymphedema of right upper extremity, mitral valve regurgitation, osteopenia, prolonged QT interval, stress incontinence due to pelvic organ prolapse, history of breast cancer. Admission Exam Per Admitting Provider PHYSICAL EXAM: Patient is a pleasant 79-year-old female, who is in no acute distress, alert and oriented x3 with normal mood and affect. Height 147.4 cm, weight 68 kg, temperature 36.5 degrees Celsius, blood pressure 140/76, heart rate 100, respiration rate 18, pulse ox on room air 99%. Patient ambulates with the assistance of her . She states she is somewhat unstable. Head is normocephalic, atraumatic. She is wearing glasses. External ears intact. Eyes: Pupils equal, round, reactive to light. Sclerae normal. Extraocular movements intact. Nose: Nares are patent. Mouth: Dentition fair, upper partial. No erythema, edema, or exudate. Mucosa moist. Neck: Functional cervical spine motion. No JVD. No carotid bruit. No adenopathy or thyromegaly. Lungs: Right upper and lower lung, mild wheeze, otherwise clear. No rales or rhonchi. Cardiac: Regular rate, rhythm. No murmurs, gallops, rubs auscultated. Right upper extremity exam reveals that her arm is in a sling. She has 2+ radial pulse. Sensation is intact to light touch distally. Motor to median, radial, ulnar, AIN, and PIN are intact. She has tenderness to palpation diffusely about the shoulder. She has various stages of bruising about the upper arm. She has significant swelling about the forearm and hand. Principal Diagnosis Displaced Right Proximal Humerus fracture Discharge Exam Right Shoulder: Dressing clean, dry and intact. Shoulder ROM not checked. FROM at elbow, wrist, hand fingers. NV intact. Discharge Data Allergies Allergy/AdvReac Type Severity Reaction Status Date / Time amoxicillin Allergy Intermediate Hives Verified 02/07/20 05:52 cephalexin [From Keflex] Allergy Intermediate Rash Verified 02/07/20 05:52 clavulanic acid Allergy Intermediate Rash Verified 02/07/20 05:52 [From Augmentin] doxycycline Allergy Intermediate Rash Verified 02/07/20 05:52 meclizine Allergy Intermediate Rash Verified 02/07/20 05:52 Sulfa (Sulfonamide Allergy Intermediate Rash Verified 02/07/20 05:52 Antibiotics) Cipro Allergy Mild HIVES Verified 12/28/15 15:11 ciprofloxacin Allergy Mild HIVES Verified 02/07/20 05:52 Consultations 02/07/20 13:56 Consult Case Management - Discharge Planning Routine Procedures Performed Operation Date: 02/07/20 08:00 Actual Procedures p Right Reverse Total Shoulder Arthroplasty(Right) - Carlos A Horne MD Ordered Studies 02/07/20 05:00 US - OR guided needle placemen Routine Hospital Course (1) Status post total shoulder arthroplasty: Patient hand an uneventful overnight stay. She completed PT/OT this AM. After speaking with case management, she decided to be discharged home with [facility] services. Pain control with PO meds PT/OT Case management Eval Plan on discharge home with [facility] Care Ice with EZ wrap Keep dressing in place. Ultra sling use x 6 weeks F/u at [facility] with Angle Mcgrath PA-C on 02/14/20 @ 10 AM Total Time Total Time Spent Total Time Spent (In Minutes): 0 Total Time Includes: Discharge Planning and Medication Reconciliation Discharge Plan Discharge Items Patient Disposition: Home - Home Health Services Reason For Visit: Right Proximal Humerus Fx Discharge Diagnosis: Right proximal humerus fracture Activity: As commented below Lifting: Wait until after follow-up appointment Lifting Comment: No more than full coffee cup for 3 months Bathing: Keep incision dry Bathing Comment: May shower tomorrow Sexual Activity: Wait until after follow-up appointment Exercise/Sports: Wait until after follow-up appointment Driving/Machine Use: No driving until cleared by clinical safety specialist Weightbearing: Right non-weightbearing Weightbearing Comment: with use of ultra sling x 6 weeks Non-emergency contact: Surgeon Call non-emergency contact if: you have any medication questions, your pain is not controlled, your temperature is above 101.5 and your wound pain has increased Follow-up/Referrals: Gregorio Do MD [Primary Care Provider] - Diet: Regular Addtl Attending Provider Instructions: Post-operative Instructions Dear Patient and Family/Friends, Before you are discharged from the hospital, it is important to know what to expect when you get home after surgery. To that end, we have created this sheet of discharge instructions which covers many commonly asked questions. Make sure you go through this sheet in its entirety with your nurse before you are discharged. Please note that we will go over the specifics of your surgery and recovery when you return for your first post-operative visit. Medications 1. Aspirin 81 mg: take 1 tab twice daily for 30 days post operatively for blood clot prevention. Please purchase this medication. 2. Tramadol 50 mg: take 1 tab every 4-6 hours as needed for post operative pain control. 30 tablets of this medication will be sent to your pharmacy. 3. Advil 200 mg: take 2 tabs every 6 hours for pain and inflammation relief. Please purchase. 4. Extra Strength Tylenol 500 mg: take 2 tabs every 6-8 hours as needed for pain relief. Please purchase. 5. Vitamin C: 250 mg take 1 tab twice daily for 14 days. A prescription will be sent to your pharmacy. 6. Iron 324 mg: take 1 tab twice daily for 14 days. A prescription will be sent to your pharmacy. Pain Expect to be in a fair amount of pain after surgery. Remember, our goal is not to eliminate your pain, but to make it tolerable. It is a good idea to stay ahead of your pain by taking the medications you were prescribed once you get home. Typically, the pain starts improving 3-7 days after surgery. You should start weaning off the narcotic pain medication (oxycodone, hydrocodone, hydromorphone, morphine) as soon as your pain improves. Please call our office if your pain is not adequately controlled. Ice Ice your operative site at least 5 times a day for 15-30 minutes at a time. Make sure you have a thin cloth between the ice or cooling unit and your skin to prevent sauer bite. This is especially important if you received a nerve block. Continue icing your operative site for the first 5-7 days after surgery, then as needed. Diet/Nausea/Vomiting Start by drinking clear liquids and eating crackers. If you can tolerate this, then you may resume your normal diet. If you feel nauseated or vomit, take Zofran/ondansetron (if prescribed). Please call our office if you have intractable nausea or vomiting, or, if after hours, you may go to the Emergency Room for help. Constipation Constipation is a common side effect of narcotic pain medication. If you have not had a bowel movement within 2 days after surgery, we recommend purchasing an over the counter laxative such as Milk of Magnesia, Dulcolax, or Miralax from a local pharmacy, and taking it as instructed. Call our clinic if any questions. Slings and Braces If you were placed in a sling or brace, it must be worn at all times, including sleep. You may remove your sling or brace for physical therapy, home exercises, and showering. The length of time you will be in your brace and range of motion restrictions depends on what surgery you had; these details will be reviewed at your first post-operative appointment. Nerve block The anesthesia team sometimes places a nerve block to help with post-operative pain control. This results in significant numbness and inability to move the extremity. The nerve block usually wears off in 8-12 hours, but sometimes can last up to 24 hours. Please call our office if you are still unable to move your extremity after 24 hours, unless you received a pain pump to take home. Ne rve blocks typically wear off quickly, so start taking pain medication as soon as you start feeling soreness near your surgical site. Weight bearing and Range of Motion. Do not bear any weight through your operative extremity immediately after surgery. If you had upper extremity surgery, do not lift anything with that arm. If you are in a knee brace, keep it locked in place until your follow-up. We will discuss your weight bearing, range of motion, and lifting restrictions in detail at your first post-operative appointment. Continuous Passive Motion (CPM) Machine If you were prescribed a CPM machine, it will start after your first post- operative appointment, at which time we will give you instructions on the range of motion settings and duration of treatment Physical therapy You will be given a prescription for physical therapy or occupational therapy at your first post-operative appointment. Typically, patients start therapy within 1 week of surgery Wound care and showering We will inspect your wound at your first post-operative visit, and may do a dressing change at that time. Most patients will be in a water-proof dressing that is removed 14 days after surgery. It is normal to see some dried blood on the dressing. Do not remove your dressing, paper strips or sutures yourself unless you are given permission. Showering is allowed the day after surgery. Do not scrub or remove any dressings. The wound should not be submerged underwater (i.e. in a bathtub or pool) until 4 weeks after surgery BELL stockings If you were given white stockings, these are to be worn at all times except to shower (on both legs) for the first 2 weeks after surgery. Driving You may not drive while taking narcotic pain medication or while in a cast, splint, sling or brace. You, the patient, need to make the final determination about when you are safe to drive, however, the earliest you may consider driving after surgery is below: Hand/Wrist/Elbow Surgery: 3 days Shoulder Surgery: 2 weeks Hip,/Knee/Ankle Surgery: 4 weeks Fracture repair: 6 weeks Return to Work Your return to work depends on what surgery was done and what type of work you do. Please bring any paperwork your employer needs completed to your first post-operative visit. Also, bring a description of your job duties, as this helps us to understand what risks you may face at work. Travel Avoid long distance travel (greater than 1 hour) in airplanes and cars for the first 6 weeks after surgery. If you must travel, you need to have a Doppler ultrasound done before you travel to rule out a blood clot in your legs. Follow-up You are scheduled for your 2 week post operative follow up visit with Angle Mcgrath PA-C on 02/14/20 @ 10:00 AM in our clinic. If you have any questions or concerns please contact .. When to call the office It is normal to have swelling and bruising in the limb that was operated on. This will improve with time. It is also normal to have fevers for the first 2 days after surgery. Reasons you should call your doctor include: Uncontrolled pain; Nausea, vomiting, or constipation that does not improve with medication; Fevers over 101.5, chills, sweats; Drainage or bleeding from the wound; Foul odor; Spreading areas of redness; Any other concerns Pending Studies at Discharge: No Stand-Alone Forms: My [facility], Smoking Cessation Medications and DC Order Prescriptions: New tramadol 50 mg tablet 50 mg PO Q6H Qty: 30 RF: 0 ascorbic acid (vitamin C) [Vitamin C] 250 mg tablet 250 mg PO BID 14 Days Qty: 28 RF: 0 ferrous sulfate 324 mg (65 mg iron) tablet,delayed release (DR/EC) 324 mg PO BID 14 Days Qty: 28 RF: 0 Continued aspirin 81 mg Tablet,Delayed Release (Dr/Ec) 81 mg PO BID RF: 0 acetaminophen [Tylenol Extra Strength] 500 mg Tablet 500 mg PO TID PRN (Reason: Pain) RF: 0 levothyroxine 88 mcg tablet 88 mcg PO QAM RF: 0 omeprazole 40 mg capsule,delayed release(DR/EC) 40 mg PO BID RF: 0 ondansetron 4 mg tablet,disintegrating 4 mg translingual Q8H PRN (Reason: Nausea) RF: 0 lorazepam 2 mg tablet 2 mg PO BID PRN (Reason: Anxiety) Qty: 0 RF: 0 Discharge Orders: Discharge Order (Routine); Ordered 02/08/20 Ordered By: Volodymyr Apple Admission Data Admit Date/Time: 02/07/20 13:52 Attending Provider: Carlos A Horne Admit Provider: Carlos A Horne Primary Care Provider: Gregorio Do Other Providers: [facility] Other Interventions: Discharge Summary Assessment (RN) Last Done: 02/08/20 14:11
--- NOTE | 2020-02-08 14:33 | Orthopedic Progress Note ---
Date of Service February 08, 2020 Assessment & Plan (1) Status post total shoulder arthroplasty: POD #1 s/p Right Reverse TSA with Tuberosities repaired, doing very well. Discharge home with [facility]. Pain control with PO meds PT/OT D/C planning Ice with EZ wrap Switch to Silverlon dressing, keep dressing in place. Ultra sling use x 4-6 weeks F/u at [facility] with Angle Mcgrath PA-C on 02/14/20 @ 10 AM Admission and Anticipated Discharge Date Admission Date: February 07, 2020 Subjective Doing well. Review of Systems Review of Systems: All systems reviewed & are unremarkable except as noted in HPI & below Physical Exam Physical Exam: RUE: Sling in place. Dressing changed by nursing Clean, dry, and intact. BCR < 2 sec. Motor to Median, radial , ulnar, musculocutaneous, AIN, and IN intact. Results & Data ([facility]) Vital Signs (Past 12 Hours) Vital Signs Temp Pulse Pulse Resp BP Pulse Ox 02/08/20 14:11 36.5 C 109 H 106 H 20 120/67 93 02/08/20 07:11 36.5 C 106 H 20 120/67 93 02/08/20 03:19 36.8 C 103 H 114/71 93 Laboratory Results 02/08/20 02/08/20 Range/Units 05:01 05:01 WBC 13.09 H (4.8-10.8) K/uL RBC 3.23 L (4.2-5.4) M/uL Hgb 10.5 L (12.0-16.0) g/dL Hct 31.5 L (37-47) % MCV 97.5 (80-100) fL MCH 32.5 (25-34) pg MCHC 33.3 (32-36) g/dL RDW Std Deviation 51.9 H (36.4-46.3) fL RDW Coeff of Saundra 14.6 H (11.5-14.5) % Plt Count 808 H (130-400) K/uL MPV 8.4 (7.4-10.4) fL Immature Gran % (Auto) 0.4 % Neut % (Auto) 80.7 % Lymph % (Auto) 10.7 % [place] % (Auto) 7.9 % Eos % (Auto) 0.2 % Baso % (Auto) 0.1 % Neut # (Auto) 10.57 H (1.4-6.5) K/uL Lymph # (Auto) 1.40 (1.2-3.4) K/uL Madison # (Auto) 1.04 H (0.11-0.59) K/uL Eos # (Auto) 0.02 (0-0.5) K/uL Baso # (Auto) 0.01 (0-0.2) K/uL Immature Gran # (Auto) 0.05 H (0.00-0.02) K/uL Sodium 137 (136-145) mmol/L Potassium 3.7 (3.5-5.1) mmol/L Chloride 105 (98-107) mmol/L Carbon Dioxide 26 (21-32) mmol/L Anion Gap 6.0 (3-11) BUN 6 L (7-18) mg/dl Creatinine 0.64 (0.6-1.2) mg/dl Est Cr Clr Drug Dosing 57.0 ml/min Est GFR ( Amer) 98.4 Est GFR (Non-Af Amer) 84.9 BUN/Creatinine Ratio 9.8 L (10-20) Glucose 127 H (70-99) mg/dl Calcium 8.7 (8.5-10.1) mg/dl Diagnostic Findings Reviewed Multiple views right shoulder show Reverse TSA, with repaired tuberosities.
--- NOTE | 2020-02-12 15:20 | Operative Report ---
Post Operative Report Pre & Post Diagnosis Operation Date: 02/07/20 08:00 Pre-Op Diagnosis: Right Proximal Humerus Fracture Post-Op Diagnosis: Right Proximal Humerus Fracture I identified the patient and participated in the time-out.: Yes Procedure Operation Date: 02/07/20 08:00 Actual Procedures p Right Reverse Total Shoulder Arthroplasty(Right) - Carlos A Horne MD Surgeon Carlos A Horne MD Irrigation Pump Installer Monique Bennett MD & MOIRA Apple PA-C Estimated Blood Loss 75 Findings Consistent with Post-Op Diagnosis Specimens none Anesthesia Type General Complications none Disposition Accompanied Patient To Recovery: No Disposition: Recovery Room Description of Procedure as per 's note, I assisted in prepping and draping, instruments handling certain parts of the procedure and wound closure. I attest to the content of the Intraoperative Record and any orders documented therein. Any exceptions are noted below.
== END 2020-02-08 16:37 | disposition home health service (06) | DRG 483 ==
LOC: ASU 05:30 → 3N 13:52